=== PATIENT | female | born 1930 | race Asian ===

== ENCOUNTER 2016-10-31 10:46 | Inpatient (IN) | payer MEDICARE, OTHER ==
[~2016-10-31] VITALS: Ht 152.4 cm; Wt 59.3 kg
--- NOTE | 2016-10-31 11:15 | ERA ---
ER Documentation Chief Complaint Date/Time DATE: 10/31/16 TIME: 11:14 Chief Complaint CLOTTED RIGHT AV GRAFT.SENT BY PMD.LAST DIALYSIS Saturday The patient is a 86-year-old female, presenting with a clotted AV shunt on the right upper extremity. Her last dialysis was 2 days ago. She denies fever, chills, neck pain, chest pain, dyspnea, abdominal pain, vomiting. She does not smoke nor drink Past medical history: Chronic kidney disease, dialysis on Saturday and Saturday, chronic bilateral lower extremity edema more on the right than the left , CAD Past surgical history: Right upper extremity AV graft for 8 years, pacemaker ROS All systems reviewed and are negative except as per history of present illness. Medications Home Meds Reported Medications Folic Acid* (Folic Acid*) 1 Mg Tablet, 1 MG PO DAILY, TAB 10/31/16 Multivit/Ca Carb/B Cmplx/Fa* (Sissy-Poonam*) 1 Tab Tab, 1 TAB PO DAILY, TAB 10/31/16 Levothyroxine Sodium* (Levoxyl*) 25 Mcg Tablet, 25 MCG PO BEFORE BREAKFAST, #30 TAB 10/31/16 Carvedilol* (Carvedilol*) 25 Mg Tablet, 25 MG PO BID, #60 TAB 10/31/16 Diltiazem Hcl* (Diltiazem XT) 120 Mg Capsule.sa, 120 MG PO DAILY, #30 CAP 10/31/16 Clopidogrel Bisulfate (Clopidogrel) 75 Mg Tablet, 75 MG PO DAILY, #30 TAB 10/31/16 Allergies Allergies: Coded Allergies: rifampin (Unverified Allergy, Unknown, 10/31/16) PMhx/Soc History of Surgery: Yes (fistulas) Hx Psychiatric Problems: No Hx Miscellaneous Medical Probl: Yes Hx Alcohol Use: No Hx Substance Use: No Hx Tobacco Use: No Smoking Status: Never smoker Physical Exam Vitals Vital Signs Date Time Temp Pulse Resp B/P Pulse Ox O2 Delivery O2 Flow Rate FiO2 10/31/16 12:56 94 13 127/85 96 Room Air 10/31/16 11:09 86 16 118/72 98 Room Air 10/31/16 10:53 97.1 84 18 128/65 98 Physical Exam Const: No acute distress. Head: Atraumatic. Eyes: Normal Conjunctiva. ENT: Normal External Ears, Nose and Mouth. Neck: Full range of motion. No meningismus. Resp: Clear to auscultation bilaterally. Cardio: Regular rate and rhythm, no murmurs. Abd: Soft, non distended, normal bowel sounds, non tender. Skin: No petechiae or rashes. Back: No midline or flank tenderness. Ext: No cyanosis, chronic bilateral lower extremity edema, worse on the right than the left, no calf tenderness. Right upper extremity AV fistula is without thrill or bruit Neur: Awake and alert. No focal deficit Psych: Normal Mood and Affect. Result Diagram: 10/31/16 1150 10/31/16 1150 Results 24 hrs Laboratory Tests Test 10/31/16 11:50 White Blood Count 2.710^3/ul Red Blood Count 2.9010^6/ul Hemoglobin 9.7g/dl Hematocrit 30.9% Mean Corpuscular Volume 106.6fl Mean Corpuscular Hemoglobin 33.4pg Mean Corpuscular Hemoglobin Concent 31.4g/dl Red Cell Distribution Width 15.8% Platelet Count 9910^3/UL Mean Platelet Volume 11.1fl Neutrophils % 57.7% Lymphocytes % 24.9% Monocytes % 12.5% Eosinophils % 3.4% Basophils % 1.1% Nucleated Red Blood Cells % 0.0/100WBC Neutrophils # 1.510^3/ul Lymphocytes # 0.710^3/ul Monocytes # 0.310^3/ul Eosinophils # 0.110^3/ul Basophils # 0.010^3/ul Nucleated Red Blood Cells # 0.010^3/ul Prothrombin Time 13.9Sec Prothrombin Time Ratio 1.1 INR International Normalized Ratio 1.07 Activated Partial Thromboplast Time 38.2Sec Sodium Level 138mmol/L Potassium Level 4.9mmol/L Chloride Level 109mmol/L Carbon Dioxide Level 21mmol/L Anion Gap 13 Blood Urea Nitrogen 48mg/dl Creatinine 5.49mg/dl Glucose Level 83mg/dl Calcium Level 8.8mg/dl Phosphorus Level 6.0mg/dl Magnesium Level 2.5mg/dl [facility] [id number] Radiology Main Line: [phone] DIAGNOSTIC IMAGING REPORT Patient: JORGE ALBERTO FRAUSTO : 1930 Age: 86 Sex: F MR #: [id number] DOS: 10/31/16 1111 Ordering MD: BOBBY WILLS MD Location: E/R Room/Bed: PROCEDURE: Chest x-ray CLINICAL INDICATION: Headache TECHNIQUE: Chest single view COMPARISON: None FINDINGS: There is a right IJ venous shunt in place. Right chest multi lead pacemaker is also identified. There is moderate cardiomegaly and atherosclerotic aortic calcification. Mild interstitial CHF is identified. No large pleural fluid is noted IMPRESSION: 1. Cardiomegaly with mild interstitial CHF. 2. Atherosclerotic aortic calcification. 3. Right chest and a shunt in place. 4. Pacemaker. 5. Right arm vascular stent RPTAT: HH .Omero Woods MD, MD Date Time Electronically viewed and signed by .Omero Woods MD, MD on 10/31/2016 12:39 .W/ CC: BOBBY WILLS MD [place] [id number] Radiology Main Line: [phone] DIAGNOSTIC IMAGING REPORT Patient: JORGE ALBERTO FRAUSTO : 1930 Age: 86 Sex: F MR #: [id number] DOS: 10/31/16 1136 Ordering MD: BOBBY WILLS MD Location: E/R Room/Bed: PROCEDURE: US DVT. CLINICAL INDICATION: Bilateral lower extremity edema. Evaluate for deep venous thrombosis.. TECHNIQUE: Multiple longitudinal and transverse images of the bilateral lower extremity veins were obtained with cantor scale and color Doppler imaging. 2D grayscale measurements with compression, color Doppler flow, and augmentation was performed. The calf veins were interrogated as well. COMPARISON: No prior studies are available for comparison. FINDINGS: The bilateral common femoral, superficial femoral and popliteal veins are normally compressible throughout. Color flow demonstrates normal filling of the vessel. Normal waveforms are visualized and there is normal response to augmentation. IMPRESSION: 1. No evidence of a deep vein thrombosis involving either lower extremity. RPTAT: A[facility] Hola Hobbs, Physician Date Time Electronically viewed and signed by Hola Hobbs Physician on 10/31/2016 12: 50 JH/ CC: BOBBY WILLS MD MEDICAL MAKING DECISION: The patient is a 86-year-old female, presenting with clotted AV graft of right upper extremity, acute hyperphosphatemia, pancytopenia. She will be admitted for revision of the graft by vascular surgeon Consultation: I discussed the patient with the vascular surgeon Dr. Ramirez as requested by the admitting physician Dr. Sanchez. He was made aware of the lab , the treatment, the patient condition. He accepted the consult at 1:20pm Departure Diagnosis: Primary Impression: Complication of vascular access for dialysis Additional Impressions: Hyperphosphatemia Pancytopenia Condition: Stable Comments I discussed the findings with the patient. I discussed the patient with her physician Dr. Sanchez who was made aware of the lab, the treatment, the patient condition. The patient is admitted to [facility] at 11:35 pm BOBBY WILLS MD Oct 31, 2016 11:15
[2016-10-31 12:08] LABS: ADD SCAN DIFF NO
[2016-10-31] MEDS ORDERED: CLOP75TA27 PO (12:08)
[2016-10-31] MEDS ORDERED: DILT120C79 PO (12:09)
[2016-10-31] MEDS ORDERED: CARV25TA79 PO (12:09)
[2016-10-31] MEDS ORDERED: LEVO25TA50 PO (12:10)
[2016-10-31] MEDS ORDERED: FOLI-49 PO (12:10)
[2016-10-31] MEDS ORDERED: NEPH PO (12:10)
[2016-10-31 12:11] LABS: ABNORMAL IP MESSAGE 1; BASOPHILS % 1.1 % (0.0-2.0); EOSINOPHILS # 0.1 10^3/ul (0.0-0.5); EOSINOPHILS % 3.4 % (0.0-7.0); HEMATOCRIT 30.9 % (37.0-47.0); HEMOGLOBIN 9.7 g/dl (12.0-16.0); LYMPHOCYTES # 0.7 10^3/ul (0.8-2.9); LYMPHOCYTES % 24.9 % (15.0-51.0); MEAN CORPUSCULAR HEMOGLOBIN 33.4 pg (29.0-33.0); MEAN CORPUSCULAR HGB CONC 31.4 g/dl (32.0-37.0); MEAN CORPUSCULAR VOLUME 106.6 fl (82.0-101.0); MEAN PLATELET VOLUME 11.1 fl (7.4-10.4); MONOCYTE # 0.3 10^3/ul (0.3-0.9); MONOCYTES % 12.5 % (0.0-11.0); NEUTROPHIL # 1.5 10^3/ul (1.6-7.5); NEUTROPHILS % 57.7 % (39.0-77.0); PLATELET COUNT 99 10^3/UL (140-415); RED CELL DISTRIBUTION WIDTH 15.8 % (11.5-14.5); WHITE BLOOD COUNT 2.7 10^3/ul (4.8-10.8)
[2016-10-31 12:20] LABS: INR 1.07; PROTIME 13.9 Sec (12.2-14.2); PT RATIO 1.1
[2016-10-31 12:21] LABS: PARTIAL THROMBOPLASTIN TIME 38.2 Sec (25.0-35.0)
[2016-10-31 12:28] LABS: CALCIUM 8.8 mg/dl (8.4-10.2); CREATININE 5.49 mg/dl (0.44-1.00); MAGNESIUM 2.5 mg/dl (1.7-2.5); POTASSIUM 4.9 mmol/L (3.5-5.1)
--- NOTE | 2016-10-31 12:39 | RADRPT ---
PROCEDURE: Chest x-ray CLINICAL INDICATION: Headache TECHNIQUE: Chest single view COMPARISON: None FINDINGS: There is a right IJ venous shunt in place. Right chest multi lead pacemaker is also identified. Th ere is moderate cardiomegaly and atherosclerotic aortic calcification. Mild interstitial CHF is ubaldo ntified. No large pleural fluid is noted IMPRESSION: 1. Cardiomegaly with mild interstitial CHF. 2. Atherosclerotic aortic calcification. 3. Right chest and a shunt in place. 4. Pacemaker. 5. Right arm vascular stent RPTAT: HH .Omero Woods MD, MD Date Time Electronically viewed and signed by .Omero Woods MD, on 10/31/2016 12:39 .W/
--- NOTE | 2016-10-31 12:51 | RADRPT ---
PROCEDURE: US DVT. CLINICAL INDICATION: Bilateral lower extremity edema. Evaluate for deep venous thrombosis.. TECHNIQUE: Multiple longitudinal and transverse images of the bilateral lower extremity veins were obtained with cantor scale and color Doppler imaging. 2D grayscale measurements with compression, co freddie Doppler flow, and augmentation was performed. The calf veins were interrogated as well. COMPARISON: No prior studies are available for comparison. FINDINGS: The bilateral common femoral, superficial femoral and popliteal veins are normally compressible thro ughout. Color flow demonstrates normal filling of the vessel. Normal waveforms are visualized and there is normal response to augmentation. IMPRESSION: 1. No evidence of a deep vein thrombosis involving either lower extremity. RPTAT: AACC Physician Sharonda Date Time Electronically viewed and signed by Physician Sharonda on 10/31/2016 12:50 /
[2016-10-31 18:54] VITALS: TEMP 97.1
--- NOTE | 2016-10-31 19:27 | CONS ---
DATE OF ADMISSION: 10/31/2016 DATE OF CONSULTATION: REASON FOR CONSULTATION: Clotted right upper extremity AV graft. HISTORY OF PRESENT ILLNESS: This is a patient known to me, 86-year-old female, with history of end- stage renal disease currently on dialysis per right upper extremity AV graft. The patient was dialy zed yesterday and was found to have a clotted graft today. PAST MEDICAL HISTORY: Hypertension, hyperlipidemia, end-stage renal disease. PAST SURGICAL HISTORY: Multiple AV grafts. ALLERGIES: NONE. MEDICATIONS: List reviewed, which includes: 1. Multivitamin. 2. Levothyroxine. 3. Carvedilol. 4. Diltiazem. 5. Plavix. ALLERGIES: RIFAMPIN. SOCIAL HISTORY: No smoking, drinking, or drug use. PHYSICAL EXAMINATION: GENERAL: The patient is awake and alert, responds appropriately. VITAL SIGNS: Blood pressure is 135/81, pulse is 81, respirations 18. CARDIOVASCULAR: Normal S1, S2. No murmurs, gallops, or rubs. LUNGS: Clear. ABDOMEN: Soft. EXTREMITIES: Warm. Right upper extremity AV graft with multiple scars. No thrill or bruit. LABORATORY VALUES: Hemoglobin 9.9, white count 2.7, platelet count 99, normal coagulation factors, and a potassium of 4.9. IMPRESSION: 1. Renal failure. 2. Clotted right upper extremity arteriovenous graft. RECOMMENDATIONS: We will proceed with thrombectomy, right upper extremity AV graft. Discussed with the family. All questions answered. Dictated By: CAROLYN LIZARRAGA/ALEJANDRO Conf#: [id number] DID#: [id number]
[2016-10-31 19:49] VITALS: Ht 152.4 cm; Wt 59.3 kg
[2016-10-31 20:35] VITALS: BP 132/92; RESP 19
--- NOTE | 2016-10-31 22:39 | QN ---
Documentation Comment [id number] SHEEBA NEGRON MD Oct 31, 2016 22:39
[2016-10-31] MEDS ORDERED: BISACODYL (EC) 5 MG TAB PO PRN (23:00)
[2016-10-31] MEDS ORDERED: HYDROCODONE/APAP (5/325) TAB PO PRN (23:00)
[2016-10-31] MEDS ORDERED: ACETAMINOPHEN 325 MG TAB PO PRN (23:00)
[2016-10-31] MEDS ORDERED: NACL 0.9% 3 ML SYG IV SCH (23:00)
[2016-10-31] MEDS ORDERED: DOCUSATE SODIUM 100 MG CAP PO PRN (23:00)
[2016-10-31] MEDS ORDERED: ONDANSETRON 4 MG INJ IV PRN (23:00)
[2016-10-31] MEDS ORDERED: ACETAMINOPHEN 650 MG SUPP PR PRN (23:00)
--- NOTE | 2016-10-31 23:48 | HP ---
DATE OF ADMISSION: 10/31/2016 HISTORY OF PRESENT ILLNESS: Dayanara Valencia is an 86-year-old female who presented with clotted AV graft on the right. Patient is going to be seen by Dr. Ramirez in consultation. The patient is denying any chest pain, palpitations at this point. PAST MEDICAL HISTORY: Positive for ESRD, hypertension, hypothyroidism. Patient has history of multiple AV thrombectomy. ALLERGY HISTORY: RIFAMPIN. SOCIAL HISTORY: Negative. FAMILY HISTORY: Negative. MEDICATIONS: 1. Coreg. 2. Plavix. 3. Cardizem. 4. Folic acid. 5. Levothyroxine. 6. Multivitamin. REVIEW OF SYSTEMS: HEENT: Unremarkable. RESPIRATORY: Unremarkable. CARDIOVASCULAR: No chest pain, palpitation. ABDOMEN: Unremarkable. EXTREMITIES: Swelling of the right lower extremity more than the left. CENTRAL NERVOUS SYSTEM: Unremarkable. PHYSICAL EXAMINATION: GENERAL: The patient is awake and alert. VITAL SIGNS: Pulse 87, blood pressure 135/91. HEAD: Head is atraumatic, normocephalic. Pupils equal, reactive to light. NECK: Supple. No JVD. LUNGS: Clear. CARDIOVASCULAR: S1, S2 are normal. ABDOMEN: Soft, nontender. Bowel sounds present. No palpable mass. EXTREMITIES: No cyanosis, clubbing, or edema of the right lower extremity more than the left, is chronic as per family. The patient has clotted graft in the right upper extremity. The patient is awake, alert, moving both upper and lower extremities. LABORATORY DATA: WBC 2.7, hematocrit 30.9, platelet count of , potassium 4.9. Chest x-ray showed cardiomegaly with mild interstitial CHF, atherosclerotic aortic calcification, right chest had shunt in place, pacemaker . The patient has no evidence of DVT of the lower extremity. IMPRESSION: 1. Clotted AV graft. 2. End-stage renal disease. 3. The patient has multiple avg thrombectomy in the past. PLAN: For this patient the patient will have declotting of the AV graft by Dr. Ramirez and the patient will be dialyzed home medications will be reviewed Dictated By: SHEEBA NEGRON MD BS/NTS Conf#: [id number] DID#: [id number] [facility]
[2016-11-01 05:07] LABS: ADD SCAN DIFF NO
[2016-11-01] MEDS: LEVOTHYROXINE 25 MCG TAB PO SCH (05:09)
[2016-11-01 05:13] LABS: ABNORMAL IP MESSAGE 1; HEMATOCRIT 27.1 % (37.0-47.0); HEMOGLOBIN 8.7 g/dl (12.0-16.0); MEAN CORPUSCULAR HGB CONC 32.1 g/dl (32.0-37.0); MEAN CORPUSCULAR VOLUME 105.9 fl (82.0-101.0); MEAN PLATELET VOLUME 11.1 fl (7.4-10.4); PLATELET COUNT 86 10^3/UL (140-415); RED BLOOD COUNT 2.56 10^6/ul (4.20-5.40); RED CELL DISTRIBUTION WIDTH 15.5 % (11.5-14.5)
[2016-11-01 05:21] LABS: POTASSIUM 4.8 mmol/L (3.5-5.1)
[2016-11-01 05:24] LABS: CALCIUM 8.3 mg/dl (8.4-10.2); CREATININE 6.43 mg/dl (0.44-1.00)
[2016-11-01] MEDS: DILTIAZEM (CD) 120 MG CAP PO SCH (08:20)
[2016-11-01] MEDS: MULTIVIT/CA CARB/B CMPLX/FA TAB PO SCH (08:21)
[2016-11-01] MEDS: FOLIC ACID 1 MG TAB PO SCH (08:21)
[2016-11-01] MEDS: FAMOTIDINE 20 MG TAB PO SCH (08:21)
[2016-11-01 09:09] VITALS: BP 101/52; RESP 16
--- NOTE | 2016-11-01 10:26 | PN ---
Date/Time of Note Date/Time of Note DATE: 11/01/16 TIME: 10:21 Assessment/Plan Lines/Catheters IV Catheter Type (from Nrsg): Saline Lock Assessment/Plan Chief Complaint/Hosp Course IMPRESSION: 1. Renal failure. 2. Clotted right upper extremity arteriovenous graft. RECOMMENDATIONS: We will proceed with thrombectomy, right upper extremity AV graft. Discussed with the family. All questions answered. OR time is not available today. Plan for surgery when OR time is available Problems: Subjective 24 Hr Interval Summary Constitutional: improved Pain Control: mild Exam/Review of Systems Vital Signs Vitals Vital Signs Date Time Temp Pulse Resp B/P Pulse Ox O2 Delivery O2 Flow Rate FiO2 11/01/16 09:09 97.8 64 16 101/52 94 10/31/16 18:54 Room Air Intake and Output 10/31/16 10/31/16 11/01/16 15:00 23:00 07:00 Intake Total 250 ml Balance 250 ml Exam ENMT: mucosa pink and moist, nl external ears & nose, nl lips & teeth, nl nasal mucosa & septum Neck: non-tender, supple Respiratory: clear to auscultation, normal air movement Cardiovascular: nl pulses, regular rate and rhythm Gastrointestinal: nl liver, spleen, non-tender, soft Results Result Diagram: 11/01/16 0425 11/01/16 0425 CAROLYN LIMA MD Nov 01, 2016 10:25
[2016-11-01 12:09] LABS: EOSINOPHILS # 0.1 10^3/ul (0.0-0.5); LYMPHOCYTES # 0.5 10^3/ul (0.8-2.9); MONOCYTE # 0.2 10^3/ul (0.3-0.9); NEUTROPHIL # 1.1 10^3/ul (1.6-7.5)
--- NOTE | 2016-11-01 17:32 | RADRPT ---
Vent Rate: 82 bpm RR Interval: 0 msec SD Interval: 0 msec QRS Duration: 76 msec QT Interval: 428 msec QTC Interval: 500 msec P-R-T [place]: 0 - -76 - -26 degrees Demand pacemaker, interpretation is based on intrinsic rhythm Atrial fibrillation with premature ventricular or aberrantly conducted complexes Left axis deviation Low voltage QRS Inferior infarct , age undetermined Cannot rule out Anterior infarct , age undetermined Abnormal ECG Electronically Signed By: Mathieu Mendez [id number]
--- NOTE | 2016-11-01 19:11 | PN ---
Date/Time of Note Date/Time of Note DATE: 11/01/16 TIME: 19:10 Assessment/Plan VTE Prophylaxis VTE Prophylaxis Intervention: other Lines/Catheters [facility] Saline Lock Assessment/Plan Chief Complaint/Hosp Course IMPRESSION: 1. Clotted AV graft. 2. End-stage renal disease. 3. The patient has multiple avg thrombectomy in the past. plan declotting soon Problems: Subjective 24 Hr Interval Summary Subjective hx not possible: other (waiting for avf declotting) Exam/Review of Systems Vital Signs Vitals Vital Signs Date Time Temp Pulse Resp B/P Pulse Ox O2 Delivery O2 Flow Rate FiO2 11/01/16 09:09 97.8 64 16 101/52 94 10/31/16 18:54 Room Air Intake and Output 10/31/16 10/31/16 11/01/16 15:00 23:00 07:00 Intake Total 250 ml Balance 250 ml Exam Respiratory: clear to auscultation Cardiovascular: regular rate and rhythm Gastrointestinal: soft Musculoskeletal: nl extremities to inspection Results Result Diagram: 11/01/16 0425 11/01/16 0425 Results 24 hrs Laboratory Tests Test 11/01/16 04:25 White Blood Count 2.0 #L Red Blood Count 2.56 L Hemoglobin 8.7 L Hematocrit 27.1 L Mean Corpuscular Volume 105.9 H Mean Corpuscular Hemoglobin 34.0 H Mean Corpuscular Hemoglobin Concent 32.1 Red Cell Distribution Width 15.5 H Platelet Count 86 L Mean Platelet Volume 11.1 H Neutrophils % 54.0 Band Neutrophils % 10.0 H Lymphocytes % 23.0 Monocytes % 10.0 Eosinophils % 3.0 Nucleated Red Blood Cells % 1.0 H Neutrophils # 1.1 L Lymphocytes # 0.5 L Monocytes # 0.2 L Eosinophils # 0.1 Sodium Level 141 Potassium Level 4.8 Chloride Level 108 Carbon Dioxide Level 21 Anion Gap 17 H Blood Urea Nitrogen 58 H Creatinine 6.43 H Glucose Level 85 Calcium Level 8.3 L Medications Medications Current Medications Carvedilol (Coreg) 25 mg BID PO Last administered on 10/31/16t 21:21; Admin Dose 25 MG; Start 10/31/16 at 21:00 Diltiazem HCl (Cardizem Cd) 120 mg DAILY PO ; Start 11/01/16 at 09:00 Folic Acid (Folic Acid) 1 mg DAILY PO ; Start 11/01/16 at 09:00 Multivit/Ca Carb/ B Cmplx/FA/Prenat (Sissy-Poonam) 1 tab DAILY PO ; Start 11/01/16 at 09:00 Ondansetron HCl (Zofran Inj) 4 mg Q6H PRN IV NAUSEA AND/OR VOMITING; Start at 23:00 Acetaminophen (Tylenol Tab) 650 mg Q6H PRN PO PAIN LEVEL 1-3 OR FEVER; Start at 23:00 Acetaminophen (Tylenol Supp) 650 mg Q6H PRN [place] PAIN LEVEL 1-3 OR FEVER; Start 10/31/16 at 23:00 Acetaminophen/ Hydrocodone Bitart ([place] (5/325)) 1 tab Q6H PRN PO MODERATE PAIN LEVEL 4-6; Start 10/31/16 at 23:00 Docusate Sodium (Colace) 100 mg Q12H PRN PO CONSTIPATION; Start 10/31/16 at 23: 00 Bisacodyl (Dulcolax) 5 mg DAILY PRN PO CONSTIPATION; Start 10/31/16 at 23:00 Famotidine (Pepcid) 20 mg DAILY PO ; Start 11/01/16 at 09:00 SHEEBA NEGRON MD Nov 01, 2016 19:11
[2016-11-01 19:55] VITALS: BP 75/45; RESP 17
[2016-11-01 21:25] VITALS: BP 80/53; RESP 22
[2016-11-01 23:00] VITALS: PULSE 75
[2016-11-01 23:17] VITALS: BP 75/38; RESP 17
[2016-11-02] VITALS (27 sets, daily range): BP systolic 81–113; BP diastolic 46–73; PULSE 56–93; RESP 12–19
--- NOTE | 2016-11-02 00:46 | RADRPT ---
PROCEDURE: XR Chest. CLINICAL INDICATION: Chest pain. Shortness of breath TECHNIQUE: Portable AP supine view of the chest was obtained. COMPARISON: 10/31/2016 FINDINGS: The cardiomediastinal silhouette is enlarged, a dual chamber right subclavian approach cardiac pacem zonia is again noted. A right internal jugular approach central venous access catheter is again seen the distal tip at the cavoatrial junction. No acute lobar infiltrate is identified. Pulmonary vas cular congestion and chronic congestive heart failure pattern is again identified, unchanged from th e prior exam. There is no evidence of pneumothorax or obvious pleural effusion. Demineralization i s again noted with severe degenerative change of the left shoulder. There is no evidence of acute o sseous abnormality. Multiple monitoring wires overlie the chest limiting fine evaluation RPTAT:HJJR IMPRESSION: Stable chronic congestive heart failure pattern in this patient with cardiac silhouette enlargement and dual chamber cardiac pacemaker, the appearance of the chest unchanged compared to 10/31/2016. Physician Garima Date Time Electronically viewed and signed by Physician Garima on 11/02/2016 00:46 /
[2016-11-02] MEDS ORDERED: SOD CHLORIDE 0.9% 200 ML IV ONE (03:00)
[2016-11-02 04:19] LABS: CALCIUM 8.4 mg/dl (8.4-10.2); CREATININE 7.32 mg/dl (0.44-1.00); POTASSIUM 5.3 mmol/L (3.5-5.1)
[2016-11-02] MEDS: LEVOTHYROXINE 25 MCG TAB PO SCH (07:00)
[2016-11-02] MEDS: FOLIC ACID 1 MG TAB PO SCH (08:30)
[2016-11-02] MEDS: DILTIAZEM (CD) 120 MG CAP PO SCH (08:30)
[2016-11-02] MEDS: FAMOTIDINE 20 MG TAB PO SCH (08:30)
[2016-11-02] MEDS: MULTIVIT/CA CARB/B CMPLX/FA TAB PO SCH (08:30)
[2016-11-02] MEDS ORDERED: NA POLYST SULFON 15 GM/60 ML BTL PR ONE (09:00)
--- NOTE | 2016-11-02 12:35 | RADRPT ---
Vent Rate: 72 bpm RR Interval: 0 msec MA Interval: 0 msec QRS Duration: 80 msec QT Interval: 408 msec QTC Interval: 446 msec P-R-T [place]: 0 - 115 - 101 degrees Atrial fibrillation Right axis deviation Low voltage QRS Nonspecific T wave abnormality , probably digitalis effect Abnormal ECG Electronically Signed By: Mathieu Mendez [id number]
[2016-11-02] MEDS ORDERED: LIDOCAINE 1% (MPF) 30 ML INJ ONE (13:19)
[2016-11-02] MEDS ORDERED: BUPIVACAINE 0.5% (SDV) 30 ML INJ ONE (13:19)
[2016-11-02] MEDS ORDERED: IOHEXOL 300MG/ML 30 ML BTL ONE (13:20)
[2016-11-02] MEDS ORDERED: GELATIN SIZE 100 SPONGE ONE (13:20)
[2016-11-02] MEDS ORDERED: HEPARIN 1000 UNITS/ML 10 ML INJ ONE (13:20)
[2016-11-02] MEDS ORDERED: THROMBIN 5000 UNIT VIAL ONE (13:20)
--- NOTE | 2016-11-02 13:26 | PN ---
Date/Time of Note Date/Time of Note DATE: 11/02/16 TIME: 13:22 Assessment/Plan VTE Prophylaxis VTE Prophylaxis Intervention: SCD's Lines/Catheters IV [facility] Saline Lock Urinary Cath still in place: No Assessment/Plan Chief Complaint/Hosp Course 1. Clotted AV graft. 2. End-stage renal disease. 3. The patient has multiple avg thrombectomy in the past. Problems: Assessment/Plan 1. dr Ramirez will declot it today Subjective 24 Hr Interval Summary Constitutional: improved, no complaints Eyes: no complaints ENT: no complaints Respiratory: no complaints Cardiovascular: no complaints Gastrointestinal: no complaints Genitourinary: no complaints Musculoskeletal: back pain Skin: no complaints Exam/Review of Systems Vital Signs Vitals Vital Signs Date Time Temp Pulse Resp B/P Pulse Ox O2 Delivery O2 Flow Rate FiO2 11/02/16 12:19 113/65 11/02/16 12:04 77 11/02/16 11:32 97.1 18 99 11/01/16 23:00 Nasal Cannula 2.0 Intake and Output 11/01/16 11/01/16 11/02/16 15:00 23:00 07:00 Intake Total 480 ml 200 ml Balance 480 ml 200 ml Exam Constitutional: alert Psych: no complaints Head: normocephalic Eyes: nl conjunctiva ENMT: nl external ears & nose Neck: supple Respiratory: clear to auscultation Cardiovascular: regular rate and rhythm Genitourinary - Female: nl external genitalia Extremities: other (right AV shunt no bruit) Neurological: TREATING PLANT PUMPER II-XII intact Results Result Diagram: 11/01/16 0425 11/02/16 0345 Results 24 hrs Laboratory Tests Test 11/01/16 21:48 11/01/16 22:10 11/02/16 03:45 11/02/16 09:40 Bedside Glucose 117 Troponin I 0.028 0.027 0.031 Sodium Level 140 Potassium Level 5.3 H Chloride Level 110 Carbon Dioxide Level 22 Anion Gap 13 Blood Urea Nitrogen 65 H Creatinine 7.32 H Glucose Level 106 Calcium Level 8.4 Medications Medications Current Medications Carvedilol (Coreg) 25 mg BID PO Last administered on 10/31/16t 21:21; Admin Dose 25 MG; Start 10/31/16 at 21:00 Diltiazem HCl (Cardizem Cd) 120 mg DAILY PO ; Start 11/01/16 at 09:00 Folic Acid (Folic Acid) 1 mg DAILY PO ; Start 11/01/16 at 09:00 Multivit/Ca Carb/ B Cmplx/FA/Prenat (Sissy-Poonam) 1 tab DAILY PO ; Start 11/01/16 at 09:00 Ondansetron HCl (Zofran Inj) 4 mg Q6H PRN IV NAUSEA AND/OR VOMITING; Start at 23:00 Acetaminophen (Tylenol Tab) 650 mg Q6H PRN PO PAIN LEVEL 1-3 OR FEVER; Start at 23:00 Acetaminophen (Tylenol Supp) 650 mg Q6H PRN [place] PAIN LEVEL 1-3 OR FEVER; Start 10/31/16 at 23:00 Acetaminophen/ Hydrocodone Bitart ([place] (5/325)) 1 tab Q6H PRN PO MODERATE PAIN LEVEL 4-6; Start 10/31/16 at 23:00 Docusate Sodium (Colace) 100 mg Q12H PRN PO CONSTIPATION; Start 10/31/16 at 23: 00 Bisacodyl (Dulcolax) 5 mg DAILY PRN PO CONSTIPATION; Start 10/31/16 at 23:00 Famotidine (Pepcid) 20 mg DAILY PO ; Start 11/01/16 at 09:00 DOLLY YEPEZ Nov 02, 2016 13:26
[2016-11-02] MEDS ORDERED: BUPIVACAINE 0.5% 30 ML VIAL INJ ONE (13:50)
[2016-11-02] MEDS ORDERED: LIDOCAINE 1% (MPF) 30 ML INJ INJ ONE (13:50)
[2016-11-02] MEDS ORDERED: HEPARIN 1000 UNITS/ML 10 ML INJ IRR ONE (13:50)
--- NOTE | 2016-11-02 14:54 | HPN ---
Date/Time of Note Date/Time of Note DATE: 11/02/16 TIME: 14:54 Interval H&P Admission Note Pt. seen H&P reviewed: No system changes CAROLYN LIMA MD Nov 02, 2016 14:54
[2016-11-02] MEDS ORDERED: PROPOFOL 20 ML ONE (15:05)
[2016-11-02] MEDS ORDERED: SUCCINYLCHOLINE CHLORIDE 100 MG/5 ML SYG IV ONE (15:06)
[2016-11-02] MEDS ORDERED: FENTAnyl 50 MCG/ML VIAL ONE (15:06)
[2016-11-02] MEDS ORDERED: MIDAZOLAM 1 MG/ML 2 ML INJ ONE (15:06)
[2016-11-02] MEDS ORDERED: ROCURONIUM 50 MG INJ ONE (15:06)
[2016-11-02] MEDS ORDERED: ETOMIDATE 20 MG INJ ONE (15:06)
[2016-11-02] MEDS ORDERED: IOHEXOL 300MG/ML 30 ML BTL INJ ONE (15:10)
--- NOTE | 2016-11-02 16:12 | OPR ---
Date/Time of Note Date/Time of Note DATE: 11/02/16 TIME: 16:08 Operative Report Procedure Date: Nov 02, 2016 Preoperative Diagnosis Clotted RUE AVG Postoperative Diagnosis same Operation Performed Thrombectomy RUE AVG Surgeon: CAROLYN LIMA MD Anesthesia: MAC Estimated Blood Loss: minimal Complications: None Pt Condition Post Procedure: stable Disposition: PACU Indications ESRD Operative\Procedure Findings Dictated CAROLYN LIMA MD Nov 02, 2016 16:12
[2016-11-02] MEDS ORDERED: EPHEDrine SULFATE 50 MG/5 ML SYG ONE (16:34)
[2016-11-02] MEDS ORDERED: EPHEDrine SULFATE 50 MG/5 ML SYG IV PRN (17:00)
[2016-11-03] VITALS (8 sets, daily range): BP systolic 101–104; BP diastolic 51–81; PULSE 69–98; RESP 17–20
[2016-11-03] MEDS: LEVOTHYROXINE 25 MCG TAB PO SCH (06:04)
--- NOTE | 2016-11-03 06:57 | OPR ---
DATE OF OPERATION: PREOPERATIVE DIAGNOSIS: Clotted left upper extremity arteriovenous graft. POSTOPERATIVE DIAGNOSIS: Clotted left upper extremity arteriovenous graft. OPERATION PERFORMED: 1. Thrombectomy and revision, right upper extremity AV graft. 2. Right upper extremity venogram. 3. Central venogram. 4. Interpretation and supervision of the venogram. 5. Right upper extremity arterial anastomosis arteriogram/ brachial arteriogram. 6. Fluoroscopy. SURGEON: Carolyn Ramirez MD ANESTHESIA: Local with IV sedation. CONSENT: Risks, benefits, complications, alternative therapies explained to the patient and [facility], consent obtained. OPERATIVE TECHNIQUE: The patient was placed in supine position, prepped and draped in usual sterile fashion. Time-out was called, antibiotic was given and I started. I made a 2 cm incision over the right arm AV graft which was in the arm laterally. Incision was andres en down to the subcutaneous tissue which was then opened using electrocautery. The graft was identi fied. There appeared to be a large laceration in the graft. It was then opened through the lacerat ion ____. Thrombectomy of the arterial and venous limb of the graft was performed using a 4-[place] Edward catheter. Arteriogram was done which showed no evidence of any arterial anastomosis, comple tely patent arterial anastomosis. Venogram was done which showed a ____catheter draining into the s uperior vena cava ____without any clot. The graft was then revised in end-to-end anastomosis using 6-0 Prolene continuous suture technique. The wound was irrigated and closed in 2 layers of 2-0 Vicr yl suture for the deep and 3-0 Vicryl suture for running subcuticular skin closure. The patient had a strong thrill and a bruit over the newly thrombectomized graft and tolerated the procedure well. Dictated By: CAROLYN LIZARRAGA/ALEJANDRO Conf#: [id number] DID#: [id number]
[2016-11-03 07:07] LABS: ADD SCAN DIFF NO
[2016-11-03 07:21] LABS: ABNORMAL IP MESSAGE 1; BASOPHILS % 1.3 % (0.0-2.0); EOSINOPHILS # 0.1 10^3/ul (0.0-0.5); HEMATOCRIT 28.8 % (37.0-47.0); HEMOGLOBIN 9.3 g/dl (12.0-16.0); LYMPHOCYTES # 0.4 10^3/ul (0.8-2.9); LYMPHOCYTES % 18.6 % (15.0-51.0); MEAN CORPUSCULAR HEMOGLOBIN 33.8 pg (29.0-33.0); MEAN CORPUSCULAR HGB CONC 32.3 g/dl (32.0-37.0); MEAN CORPUSCULAR VOLUME 104.7 fl (82.0-101.0); MEAN PLATELET VOLUME 11.3 fl (7.4-10.4); MONOCYTE # 0.3 10^3/ul (0.3-0.9); MONOCYTES % 11.9 % (0.0-11.0); NEUTROPHIL # 1.5 10^3/ul (1.6-7.5); NEUTROPHILS % 64.2 % (39.0-77.0); PLATELET COUNT 95 10^3/UL (140-415); RED BLOOD COUNT 2.75 10^6/ul (4.20-5.40); WHITE BLOOD COUNT 2.3 10^3/ul (4.8-10.8)
[2016-11-03 07:29] LABS: CALCIUM 8.6 mg/dl (8.4-10.2); CREATININE 5.05 mg/dl (0.44-1.00); MAGNESIUM 2.3 mg/dl (1.7-2.5); POTASSIUM 3.5 mmol/L (3.5-5.1)
[2016-11-03] MEDS: FAMOTIDINE 20 MG TAB PO SCH (08:50)
[2016-11-03] MEDS: MULTIVIT/CA CARB/B CMPLX/FA TAB PO SCH (08:50)
[2016-11-03] MEDS: FOLIC ACID 1 MG TAB PO SCH (08:51)
[2016-11-03] MEDS: DILTIAZEM (CD) 120 MG CAP PO SCH (08:51)
--- NOTE | 2016-11-03 10:48 | RADRPT ---
PROCEDURE: Intraoperative imaging of the right humerus with fluoroscopy. CLINICAL INDICATION: Right arm pain. Right upper extremity dialysis graft malfunction. Intraoper ative. TECHNIQUE: 7 images of the right humerus region were obtained in the operating room with an image intensifier. No radiologist was in attendance. 17.3 seconds of fluoroscopy time was used. COMPARISON: No prior study is available for comparison. FINDINGS: Images demonstrate contrast in the venous system of the right upper extremity and surgical instrumen ts overlying the right humerus. IMPRESSION: 1. Intraoperative imaging of the right humerus. RPTAT: QQ .Librado Ramirez MD, MD Date Time Electronically viewed and signed by .Librado Ramirez MD, on 11/03/2016 10:48 .R/
--- NOTE | 2016-11-03 12:16 | PN ---
Date/Time of Note Date/Time of Note DATE: 11/03/16 TIME: 12:14 Assessment/Plan VTE Prophylaxis VTE Prophylaxis Intervention: ambulation Lines/Catheters [facility] Peripheral IV Urinary Cath still in place: No Assessment/Plan Chief Complaint/Hosp Course 1. Declotted AV graft right arm. 2. End-stage renal disease, stage 4, HD dependent. 3. The patient has multiple avg thrombectomy in the past. Problems: Assessment/Plan 1 Discharge today Subjective 24 Hr Interval Summary Constitutional: improved, no complaints ENT: no complaints Respiratory: no complaints Cardiovascular: no complaints Gastrointestinal: no complaints Exam/Review of Systems Vital Signs Vitals Vital Signs Date Time Temp Pulse Resp B/P Pulse Ox O2 Delivery O2 Flow Rate FiO2 11/03/16 12:03 69 11/03/16 11:39 98.0 19 104/51 97 11/03/16 04:21 Room Air 11/01/16 23:00 2.0 Intake and Output 11/02/16 11/02/16 11/03/16 15:00 23:00 07:00 Intake Total 850 ml Output Total 1520 ml Balance -670 ml Exam Constitutional: alert, oriented Psych: no complaints ENMT: nl external ears & nose Neck: supple Respiratory: clear to auscultation Cardiovascular: regular rate and rhythm Skin: other (Right AV shunt positive for bruit and gurgling) Lymph: nl lymph nodes Results Result Diagram: 11/03/16 0612 11/03/16 0612 Results 24 hrs Laboratory Tests Test 11/03/16 06:12 White Blood Count 2.3 L Red Blood Count 2.75 L Hemoglobin 9.3 L Hematocrit 28.8 L Mean Corpuscular Volume 104.7 H Mean Corpuscular Hemoglobin 33.8 H Mean Corpuscular Hemoglobin Concent 32.3 Red Cell Distribution Width 16.0 H Platelet Count 95 L Mean Platelet Volume 11.3 H Neutrophils % 64.2 Lymphocytes % 18.6 Monocytes % 11.9 H Eosinophils % 4.0 Basophils % 1.3 Nucleated Red Blood Cells % 0.0 Neutrophils # 1.5 L Lymphocytes # 0.4 L Monocytes # 0.3 Eosinophils # 0.1 Basophils # 0.0 Nucleated Red Blood Cells # 0.0 Sodium Level 142 Potassium Level 3.5 Chloride Level 110 Carbon Dioxide Level 26 Anion Gap 10 Blood Urea Nitrogen 37 #H Creatinine 5.05 #H Glucose Level 90 Calcium Level 8.6 Magnesium Level 2.3 Medications Medications Current Medications Carvedilol (Coreg) 25 mg BID PO Last administered on 11/03/16 08:50; Admin Dose 25 MG; Start 10/31/16 at 21:00 Diltiazem HCl (Cardizem Cd) 120 mg DAILY PO Last administered on 11/03/16 08: 51; Admin Dose 120 MG; Start 11/01/16 at 09:00 Folic Acid (Folic Acid) 1 mg DAILY PO Last administered on 11/03/16 08:51; Admin Dose 1 MG; Start 11/01/16 at 09:00 Multivit/Ca Carb/ B Cmplx/FA/Prenat (Sissy-Poonam) 1 tab DAILY PO Last administered on 11/03/16 08:50; Admin Dose 1 TAB; Start 11/01/16 at 09:00 Ondansetron HCl (Zofran Inj) 4 mg Q6H PRN IV NAUSEA AND/OR VOMITING; Start at 23:00 Acetaminophen (Tylenol Tab) 650 mg Q6H PRN PO PAIN LEVEL 1-3 OR FEVER; Start at 23:00 Acetaminophen (Tylenol Supp) 650 mg Q6H PRN NE PAIN LEVEL 1-3 OR FEVER; Start 10/31/16 at 23:00 Acetaminophen/ Hydrocodone Bitart ([place] (5/325)) 1 tab Q6H PRN PO MODERATE PAIN LEVEL 4-6; Start 10/31/16 at 23:00 Docusate Sodium (Colace) 100 mg Q12H PRN PO CONSTIPATION; Start 10/31/16 at 23: 00 Bisacodyl (Dulcolax) 5 mg DAILY PRN PO CONSTIPATION; Start 10/31/16 at 23:00 Famotidine (Pepcid) 20 mg DAILY PO Last administered on 11/03/16 08:50; Admin Dose 20 MG; Start 11/01/16 at 09:00 DOLLY YEPEZ Nov 03, 2016 12:16
--- NOTE | 2016-11-03 12:19 | PDOCDIS ---
Discharge Instructions CONDITION Patient Condition: Good HOME CARE INSTRUCTIONS: Diet Instructions: 2gm NaSpecial Diet: RENAL, ACTIVITY: Activity Restrictions: Slowly Increase Activity SCHOOL/WORK RELEASE May return to School/Work with: No Restrictions DOLLY YEPEZ Nov 03, 2016 12:19
== END 2016-11-03 13:44 | disposition home or self-care (01) | DRG 252 ==
LOC: E/R 10:46 → INTOOBSV 13:08 → PP2 13:08 → TEL 11-01 22:30 → OBSVTOIN 11-02 13:02
PROVIDERS: ADMIT Internal Medicine Nephrology; ATTEND Internal Medicine Nephrology
PROC: 05WY07Z Revision of Autologous Tissue Substitute in Upper Vein, Open Approach (ICD-10-PCS; 2016-11-02)
PROC: 03WY07Z Revision of Autologous Tissue Substitute in Upper Artery, Open Approach (ICD-10-PCS; principal; 2016-11-02 13:00)
DX: T82.818A Embolism due to vascular prosthetic devices, implants and grafts, initial encounter (principal); N18.6 End stage renal disease; I12.0 Hypertensive chronic kidney disease with stage 5 chronic kidney disease or end stage renal disease; Z99.2 Dependence on renal dialysis; Z95.0 Presence of cardiac pacemaker
CPT/HCPCS: 36415; 71010; 80048; 82962; 83735; 84100; 84484; 85025; 85610; 85730; 87081; 90935; 93005; 93970; 99217; G0378; J0330; J1644; J2250; J3010; J7040; Q9967

== ENCOUNTER 2016-12-31 15:58 | Inpatient (IN) | payer MEDICARE, OTHER ==
[~2016-12-31] VITALS: Ht 152.4 cm; Wt 58.4 kg
[~2016-12-31 15:58] MED LIST: CARV25TA79 PO; CLOP75TA27 PO; DILT120C79 PO; FOLI-49 PO; LEVO25TA50 PO; NEPH PO
--- NOTE | 2016-12-31 20:05 | RADRPT ---
PROCEDURE: AP pelvis CLINICAL INDICATION: Pain status post trauma TECHNIQUE: AP pelvis COMPARISON: None available FINDINGS: Foreshortening of the right femoral neck is present with a subtle sclerosis and cortical lucency at the right femoral neck. Recommend additional imaging to further evaluate for a subtle impaction typ e fracture. Extensive vascular calcifications are present of the aorta and the bilateral iliac arteries. Multip le vascular stents are present superimposed over the expected location of the right iliac , external iliac and common femoral arteries. Healed fractures of the right superior and inferior pubic rami are noted. Generalized osteopenia is present. Mild levoscoliosis of the lumbar spine is present. A nonobstructive bowel gas pattern is present. IMPRESSION: 1. Subtle right femoral neck foreshortening and lucency. Recommend additional imaging of the right hip to evaluate for subtle impaction type fracture. 2. Multiple right external iliac and femoral vascular stents and severe atherosclerotic vascular di sease 3. Generalized osteopenia 4. Healed fractures of the right superior inferior pubic rami 5. Spondylosis and levoscoliosis of the imaged spine. RPTAT: HDC .Hortensia Wolf MD, Date Time Electronically viewed and signed by .Hortensia Wolf MD, on 12/31/2016 20:04 .C/
[2016-12-31] MEDS ORDERED: KETOROLAC 15 MG INJ IV STA (21:20)
[2016-12-31] MEDS ORDERED: ONDANSETRON 4 MG INJ IV STA (21:20)
--- NOTE | 2016-12-31 21:35 | RADRPT ---
PROCEDURE: CT scan of the pelvis without IV contrast. CLINICAL INDICATION: 86-year-old female with bilateral hip pain. TECHNIQUE: Thin section axial, coronal and sagittal images were performed through the abdomen and pelvis without contrast. Radiation Dose: CTDI: 10 and DLP: 290 One or more of the following dose reduction techniques were used: - Automated exposure control. - Adjustment of the mA and/or kV according to patient size. Use of iterative reconstruction technique. COMPARISON: Chest x-ray 08/10/2016 06:18 a.m. FINDINGS: Soft tissues: There is diffuse soft tissue swelling around the circumference of the pelvis. This ma y be the result of anasarca. There is a small ulceration with surrounding edema in the midline of t he anterior upper pelvic wall.. Gastrointestinal: There is fecal material in the colon. There is no evidence of diverticulosis or d iverticulitis. No free fluid is noted in the cul-de-sac. Urinary bladder : The urinary bladder is not visualized. Lymph nodes: No enlarged lymph nodes are identified. Reproductive system and pelvis : The uterus is small contains serosal calcifications. No abnormal a dnexal mass is identified. Bony elements: There is an acute fracture to the superior medial articular surface of the left aceta bulum. There are old healed fracture deformities of the inferior rami of the right and left sides of the pu bis. There are degenerative changes with erosions noted in the posterior column of the left acetabulum. There are degenerative changes in the SI joints. There are degenerative changes in the lower lumbar spine and in the articular facets at L4-5 and L5-S1. There is hypertrophy of the ligamentum flavum at L4-5. This results in a combined soft tissues and bony central canal stenosis. Vasculature: There is a vascular stent extending from the right common iliac artery to the right com mon femoral artery. There is a second vascular stent extending from the distal right femoral artery to the level of the right superficial femoral artery. There are vascular calcifications in the low er abdominal aorta, common iliac arteries, internal and external iliac and common femoral arteries. There is a partially visualized bypass graft beginning near the origin of the right superficial fem oral artery which is only partially visualized on this study. IMPRESSION: 1. There is an acute fracture to the superior medial articular surface of the left acetabulum. 2. 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 3. The right hip is intact. 4. There are old healed fracture deformities to the inferior rami of the right and left sides of th e pubis. 5. Atherosclerotic vascular disease with vascular stents in the right pelvis. 6. Anasarca. 7. The urinary bladder is not visualized. 8. There is a small laceration or ulceration over the midline of the upper anterior pelvic wall. 9. 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 RPTAT:AAJJ Physician Kindra Date Time Electronically viewed and signed by Moses Way Physician on 12/31/2016 21:35 REGLA/
[2016-12-31 21:56] LABS: ADD SCAN DIFF NO
[2016-12-31 21:59] LABS: ABNORMAL IP MESSAGE 1; BASOPHILS % 0.3 % (0.0-2.0); HEMATOCRIT 30.2 % (37.0-47.0); LYMPHOCYTES # 0.4 10^3/ul (0.8-2.9); MEAN CORPUSCULAR HEMOGLOBIN 33.7 pg (29.0-33.0); MEAN CORPUSCULAR HGB CONC 33.1 g/dl (32.0-37.0); MEAN CORPUSCULAR VOLUME 101.7 fl (82.0-101.0); MEAN PLATELET VOLUME 11.5 fl (7.4-10.4); MONOCYTE # 0.4 10^3/ul (0.3-0.9); NEUTROPHIL # 2.1 10^3/ul (1.6-7.5); NEUTROPHILS % 70.4 % (39.0-77.0); PLATELET COUNT 105 10^3/UL (140-415); RED BLOOD COUNT 2.97 10^6/ul (4.20-5.40); RED CELL DISTRIBUTION WIDTH 15.6 % (11.5-14.5); WHITE BLOOD COUNT 2.9 10^3/ul (4.8-10.8)
[2016-12-31 22:00] VITALS: TEMP 98.3
[2016-12-31 22:14] LABS: INR 1.08; PT RATIO 1.1
[2016-12-31 22:15] LABS: PARTIAL THROMBOPLASTIN TIME 39.7 Sec (25.0-35.0)
[2016-12-31 22:18] LABS: ALBUMIN 3.9 g/dl (3.3-4.9); ALBUMIN/GLOBULIN RATIO 1.5; BILIRUBIN,INDIRECT 0.4 mg/dl (0-1.1); BILIRUBIN,TOTAL 0.4 mg/dl (0.2-1.3); CALCIUM 8.6 mg/dl (8.4-10.2); CREATININE 3.96 mg/dl (0.44-1.00); POTASSIUM 4.1 mmol/L (3.5-5.1); TOTAL PROTEIN 6.5 g/dl (6.1-8.1)
--- NOTE | 2016-12-31 22:19 | ERA ---
ER Documentation Chief Complaint Date/Time DATE: 12/31/16 TIME: 22:08 Chief Complaint Patient complains of left groin / hip pain after a fall last night HPI 86-year-old woman brought in by daughter for complaints of left hip pain after falling last night while attempting to ambulate. Patient has chronic difficulty ambulating and usually requires the assistance of a walker although since the fall she has had increased difficulty ambulating on her own. She has had no head or neck injury, no fevers or chills, no chest pain or shortness of breath. Patient has end-stage kidney disease and it was hemodialyzed today. ROS All systems reviewed and are negative except as per history of present illness. Medications Home Meds Reported Medications Folic Acid* (Folic Acid*) 1 Mg Tablet, 1 MG PO DAILY, TAB 10/31/16 Multivit/Ca Carb/B Cmplx/Fa* (Sissy-Poonam*) 1 Tab Tab, 1 TAB PO DAILY, TAB 10/31/16 Levothyroxine Sodium* (Levoxyl*) 25 Mcg Tablet, 25 MCG PO BEFORE BREAKFAST, #30 TAB 10/31/16 Carvedilol* (Carvedilol*) 25 Mg Tablet, 25 MG PO BID, #60 TAB 10/31/16 Clopidogrel Bisulfate (Clopidogrel) 75 Mg Tablet, 75 MG PO DAILY, #30 TAB 10/31/16 Discontinued Reported Medications Diltiazem Hcl* (Diltiazem XT) 120 Mg Capsule.sa, 120 MG PO DAILY, #30 CAP 10/31/16 Allergies Allergies: Coded Allergies: rifampin (Unverified Allergy, Unknown, 12/31/16) PMhx/Soc Hypertension, hypothyroidism, end-stage kidney disease hemodialyzed today, arthritis, osteoporosis, atrial fibrillation History of Surgery: Yes (kidney removed, pacemake, mamta fistula) Anesthesia Reaction: No Hx Neurological Disorder: No Hx Respiratory Disorders: No Hx Cardiac Disorders: Yes (htn, pacemaker, chf) Hx Psychiatric Problems: No Hx Miscellaneous Medical Probl: No Hx Alcohol Use: No Hx Substance Use: No Hx Tobacco Use: No Smoking Status: Never smoker FmHx Family History: diabetes Physical Exam Vitals Vital Signs Date Time Temp Pulse Resp B/P Pulse Ox O2 Delivery O2 Flow Rate FiO2 12/31/16 16:03 98.6 127 20 107/55 95 Physical Exam GENERAL: Well-developed, well-nourished, well-hydrated, in no apparent distress , looks nontoxic in appearance HEENT: Moist mucous membranes, pink conjunctiva, no cervical spine tenderness or step-off deformities, no goiter, no jaundice or icterus, extraocular movements intact without pain. NEURO: Alert and oriented x 1, able to answer simple questions and follow simple commands, no facial asymmetry, pupils equal round reactive to light CARDIAC: Regular rate and rhythm, no murmurs rubs or gallops LUNGS: Clear bilaterally no wheezing crackles or stridor ABDOMEN: Soft nontender, no guarding, no rigidity, no rebound, no psoas sign no obturator sign. Normoactive bowel sounds SKIN: Warm and dry to touch, no abrasions, contusions, or hematomas, no lacerations, no ecchymosis, no target lesions, and without ulcers EXTREMITIES: Left lateral hip tenderness to touch and left lower extremity flexed at the hip and knee, distal pulses equal bilateral PSYCH: Normal affect without agitation or irritability Results 24 hrs Current Medications Medications (Trade) Dose Ordered Sig/Marisa Route PRN Reason Start Time Stop Time Status Last Admin Dose Admin Ondansetron HCl (Zofran Inj) 4 mg ONCE STAT IV 12/31/16 21:20 12/31/16 21:22 DC 12/31/16 22:00 Ketorolac Tromethamine 15 mg 15 mg ONCE STAT IV 12/31/16 21:20 12/31/16 21:22 DC 12/31/16 21:59 Sodium Chloride (NS) 500 ml @ 500 mls/hr Q1H ONCE IV 12/31/16 22:30 12/31/16 23:29 Procedures/MDM IV line was established patient was placed on monitor tech rhythm strip revealed tachycardia at 110 bpm with upright T waves. Patient was afebrile. I administered Toradol 15 mg IV and Zofran 4 mg IV, for later hypotension she received 500 cc normal saline intravenously with improvement in blood pressure. One view chest x-ray performed, read by me shows no acute infiltrates, no pneumothorax, and a pacemaker in the right chest with the right upper extremity graft. One view pelvis x-ray performed, read by me there is osteoarthritic changes throughout the sacrum and possible proximal left femur fracture. There is deformity to the right proximal femur as well although I suspect this is chronic. CT scan of the pelvis and sacrum was performed there is an acute left posterior column acetabulum fracture with diffuse arthritic changes. No other acute fracture noted. Please refer to radiologist dictation for full report. EKG performed, read by me revealed an atrial fibrillation with rapid ventricular rate at 108 bpm, normal axis, narrow QRS complex, no concerning ST elevations or depressions noted. CBC reveals leukopenia, electrolytes, liver function tests and coagulation profiles of all been ordered results are pending I will follow-up. Orthopedic consultation was obtained with Dr. Dia. I spoke to him regarding the patient's presentation, symptomatology, and CT scan findings, he kindly agreed to consult the patient. Patient admitted to [facility] under Dr. Sanchez. Departure Diagnosis: Primary Impression: Acetabulum fracture, left Qualified Code: S32.425A - Closed nondisplaced fracture of posterior wall of left acetabulum, initial encounter Additional Impressions: Inability to ambulate due to left hip Dehydration End stage kidney disease Atrial fibrillation Qualified Code: I48.2 - Chronic atrial fibrillation Condition: BENJAMIN Davis MD Dec 31, 2016 22:19
[2016-12-31 22:30] LABS: TROPONIN-I 0.032 ng/ml (0.00-0.12)
[2016-12-31] MEDS ORDERED: SOD CHLORIDE 0.9% 500 ML IV ONE (22:30)
[2017-01-01 01:11] VITALS: Ht 152.4 cm; Wt 58.4 kg
[2017-01-01 01:22] VITALS: BP 79/74; PULSE 108; RESP 20
[2017-01-01 01:37] VITALS: BP 84/50; PULSE 93; RESP 20
[2017-01-01 02:07] VITALS: BP 96/51; PULSE 92; RESP 20
[2017-01-01] MEDS ORDERED: BISACODYL (EC) 5 MG TAB PO PRN (05:00)
[2017-01-01] MEDS ORDERED: HYDROCODONE/APAP (5/325) TAB PO PRN (05:00)
[2017-01-01] MEDS: LEVOTHYROXINE 25 MCG TAB PO SCH (06:33)
[2017-01-01] MEDS: PANTOPRAZOLE (EC) 40 MG TAB PO SCH (06:33)
[2017-01-01 07:49] VITALS: BP 100/59; RESP 19
[2017-01-01] MEDS: CLOPIDOGREL 75 MG TAB PO SCH (09:24)
[2017-01-01] MEDS: MULTIVIT/CA CARB/B CMPLX/FA TAB PO SCH (09:24)
[2017-01-01] MEDS: DOCUSATE SODIUM 100 MG CAP PO SCH ×3 (09:25→22:30)
[2017-01-01] MEDS: FOLIC ACID 1 MG TAB PO SCH (09:25)
[2017-01-01] MEDS: HEPARIN 5,000 UNIT/0.5 ML VIAL SC SCH ×2 (09:29→22:32)
--- NOTE | 2017-01-01 09:32 | RADRPT ---
PROCEDURE: XR Chest. CLINICAL INDICATION: Trauma due to a fall. Chest pain. TECHNIQUE: Single frontal view. COMPARISON: 11/01/2016. FINDINGS: There is mild atelectasis at the left lung base. The lungs are otherwise clear. The heart is enlarged. There is calcification in the aorta consistent with atherosclerosis. There is a right-sided dual lead permanent pacemaker. A vascular stent is present overlying the mid right humerus. There is also a HeROcatheter overlying the right side of chest with the tip in the right atrium. There is a small left pleural effusion. There is no right pleural effusion. There is no pneumothorax. There are severe degenerative changes of the left glenohumeral joint with osteophytes, subarticular sclerosis, and deformity. IMPRESSION: 1. No significant change from 11/01/2016. RPTAT: QQ .Librado Ramirez MD, Date Time Electronically viewed and signed by .Librado Ramirez MD, on 01/01/2017 09:32 .R/
--- NOTE | 2017-01-01 18:03 | HP ---
Date/Time of Note Date/Time of Note DATE: 01/01/17 TIME: 17:59 Assessment/Plan VTE Prophylaxis VTE Prophylaxis Intervention: other Lines/Catheters IV [facility] Saline Lock Urinary Cath still in place: No Assessment/Plan Chief Complaint/Hosp Course 1. There is an acute fracture to the superior medial articular surface of the left acetabulum. 2. 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 3. S/P FALL 4. There are old healed fracture deformities to the inferior rami of the right and left sides of the pubis. 5. Atherosclerotic vascular disease with vascular stents in the right pelvis. 6. Anasarca. 7. ESRD 8. There is a small laceration or ulceration over the midline of the upper anterior pelvic wall. 9. 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 10 AFIB PLAN ORTHO HD AM Problems: HPI/ROS Admit Date/Time Admit Date/Time Dec 31, 2016 at 21:57 Hx of Present Illness S/P FALL ESRD ROS Eyes: no complaints ENT: no complaints Respiratory: no complaints Cardiovascular: no complaints Gastrointestinal: no complaints Genitourinary: no complaints Musculoskeletal: restricted range of motion Skin: no complaints Neurologic: no complaints Endocrine: no complaints Lymphatic: no complaints Psychological: no complaints Immunologic: no complaints PMH/Family/Social Past Medical History Medical History: congestive heart failure, hypertension, renal disease Past Surgical History Past Surgical Hx: other (PACEMAKER PLACEMENT,AVF PLACEMENT) Family History Significant Family History: no pertinent family hx Social History Alcohol Use: none Smoking Status: Never smoker Exam/Review of Systems Vital Signs Vitals Vital Signs Date Time Temp Pulse Resp B/P Pulse Ox O2 Delivery O2 Flow Rate FiO2 01/01/17 07:49 97.5 79 19 100/59 98 01/01/17 02:07 Room Air 01/01/17 01:38 2.0 Intake and Output 12/31/16 12/31/16 01/01/17 15:00 23:00 07:00 Intake Total 0 ml Balance 0 ml Exam Constitutional: alert, oriented Psych: no complaints Head: normocephalic Eyes: nl conjunctiva ENMT: nl external ears & nose Neck: non-tender, supple Respiratory: clear to auscultation, normal air movement Cardiovascular: irregular rhythm Gastrointestinal: bowel sounds (+), nl liver, spleen, non-tender, soft Extremities: edema (++) Neurological: CAMERA TECHNICIAN II-XII intact, nl mental status Labs Result Diagram: 12/31/16213912/31/162139 Medications Medications Current Medications Carvedilol (Coreg) 25 mg BID PO Last administered on 01/01/17 09:25; Admin Dose 25 MG; Start 01/01/17 at 09:00 Clopidogrel Bisulfate (plaVIX) 75 mg DAILY PO Last administered on 01/01/17 09 :24; Admin Dose 75 MG; Start 01/01/17 at 09:00 Folic Acid (Folic Acid) 1 mg DAILY PO Last administered on 01/01/17 09:25; Admin Dose 1 MG; Start 01/01/17 at 09:00 Multivit/Ca Carb/ B Cmplx/FA/Prenat (Sissy-Poonam) 1 tab DAILY PO Last administered on 01/01/17 09:24; Admin Dose 1 TAB; Start 01/01/17 at 09:00 Heparin Sodium (Porcine) (Heparin (5000 Units/0.5 ml)) 5,000 unit BID SC Last administered on 01/01/17 09:29; Admin Dose 5,000 UNIT; Start 01/01/17 at 09:00 Acetaminophen (Tylenol Tab) 650 mg Q6H PRN PO PAIN AND OR ELEVATED TEMP; Start 01/01/17 at 05:00 Pantoprazole (Protonix Tab) 40 mg DAILY@06 PO Last administered on 01/01/17 06 :33; Admin Dose 40 MG; Start 01/01/17 at 06:00 Docusate Sodium (Colace) 100 mg TID PO Last administered on 01/01/17 09:25; Admin Dose 100 MG; Start 01/01/17 at 09:00 Bisacodyl (Dulcolax) 10 mg BID PRN PO CONSTIPATION; Start 01/01/17 at 05:00 Acetaminophen/ Hydrocodone Bitart ([place] (5/325)) 1 tab Q6H PRN PO PAIN; Start 01/01/17 at 05:00 SHEEBA NEGRON MD Jan 01, 2017 18:03
[2017-01-01 20:05] VITALS: BP 82/42; RESP 20
[2017-01-01 22:23] VITALS: BP 82/45
[2017-01-01] MEDS: ACETAMINOPHEN 325 MG TAB PO PRN (23:20)
[2017-01-02] VITALS (9 sets, daily range): BP systolic 81–106; BP diastolic 43–56; PULSE 66–70; RESP 18
[2017-01-02 05:26] LABS: ADD SCAN DIFF NO
[2017-01-02 05:38] LABS: ABNORMAL IP MESSAGE 1; BASOPHILS % 0.6 % (0.0-2.0); EOSINOPHILS # 0.1 10^3/ul (0.0-0.5); EOSINOPHILS % 1.4 % (0.0-7.0); HEMATOCRIT 28.1 % (37.0-47.0); HEMOGLOBIN 8.8 g/dl (12.0-16.0); LYMPHOCYTES # 0.5 10^3/ul (0.8-2.9); LYMPHOCYTES % 14.6 % (15.0-51.0); MEAN CORPUSCULAR HEMOGLOBIN 32.7 pg (29.0-33.0); MEAN CORPUSCULAR HGB CONC 31.3 g/dl (32.0-37.0); MEAN CORPUSCULAR VOLUME 104.5 fl (82.0-101.0); MEAN PLATELET VOLUME 11.6 fl (7.4-10.4); MONOCYTE # 0.4 10^3/ul (0.3-0.9); MONOCYTES % 9.8 % (0.0-11.0); NEUTROPHIL # 2.6 10^3/ul (1.6-7.5); NEUTROPHILS % 73.3 % (39.0-77.0); PLATELET COUNT 82 10^3/UL (140-415); RED BLOOD COUNT 2.69 10^6/ul (4.20-5.40); RED CELL DISTRIBUTION WIDTH 15.7 % (11.5-14.5); WHITE BLOOD COUNT 3.6 10^3/ul (4.8-10.8)
[2017-01-02 06:14] LABS: CALCIUM 7.6 mg/dl (8.4-10.2); CREATININE 5.46 mg/dl (0.44-1.00); POTASSIUM 4.6 mmol/L (3.5-5.1)
[2017-01-02] MEDS: LEVOTHYROXINE 25 MCG TAB PO SCH (06:25)
[2017-01-02] MEDS: PANTOPRAZOLE (EC) 40 MG TAB PO SCH (06:25)
[2017-01-02] MEDS: DOCUSATE SODIUM 100 MG CAP PO SCH ×3 (08:50→21:00)
[2017-01-02] MEDS: MULTIVIT/CA CARB/B CMPLX/FA TAB PO SCH (08:50)
[2017-01-02] MEDS: FOLIC ACID 1 MG TAB PO SCH (08:51)
[2017-01-02] MEDS: CLOPIDOGREL 75 MG TAB PO SCH (08:51)
[2017-01-02] MEDS: HEPARIN 5,000 UNIT/0.5 ML VIAL SC SCH ×2 (09:00→20:40)
[2017-01-02] MEDS: ALBUTEROL/IPRATROPIUM (NEB) 3 ML AMP HHN PRN ×2 (10:00→14:28)
[2017-01-02] MEDS: ACETAMINOPHEN 325 MG TAB PO PRN (11:57)
--- NOTE | 2017-01-02 22:46 | PN ---
Date/Time of Note Date/Time of Note DATE: 01/02/17 TIME: 22:46 Assessment/Plan VTE Prophylaxis VTE Prophylaxis Intervention: other Lines/Catheters IV [facility] Saline Lock Urinary Cath still in place: No Assessment/Plan Chief Complaint/Hosp Course 1. There is an acute fracture to the superior medial articular surface of the left acetabulum. 2. 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 3. S/P FALL 4. There are old healed fracture deformities to the inferior rami of the right and left sides of the pubis. 5. Atherosclerotic vascular disease with vascular stents in the right pelvis. 6. Anasarca. 7. ESRD 8. There is a small laceration or ulceration over the midline of the upper anterior pelvic wall. 9. 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 10 AFIB PLAN ORTHO HD AM snf soon Problems: Subjective 24 Hr Interval Summary Respiratory: No shortness of breath Cardiovascular: no complaints Exam/Review of Systems Vital Signs Vitals Vital Signs Date Time Temp Pulse Resp B/P Pulse Ox O2 Delivery O2 Flow Rate FiO2 01/02/17 20:28 97.7 62 18 81/45 98 01/02/17 18:13 2.0 01/02/17 14:27 Nasal Cannula Intake and Output 01/01/17 01/01/17 01/02/17 15:00 23:00 07:00 Intake Total 600 ml 400 ml Output Total 0 ml 0 ml Balance 600 ml 400 ml Exam Neck: supple Respiratory: clear to auscultation Cardiovascular: regular rate and rhythm Gastrointestinal: soft Musculoskeletal: nl extremities to inspection Extremities: normal pulses Results Result Diagram: 01/02/17 0442 01/02/17 0442 Results 24 hrs Laboratory Tests Test 01/02/17 04:42 White Blood Count 3.6 #L Red Blood Count 2.69 L Hemoglobin 8.8 L Hematocrit 28.1 L Mean Corpuscular Volume 104.5 H Mean Corpuscular Hemoglobin 32.7 Mean Corpuscular Hemoglobin Concent 31.3 L Red Cell Distribution Width 15.7 H Platelet Count 82 #L Mean Platelet Volume 11.6 H Neutrophils % 73.3 Lymphocytes % 14.6 L Monocytes % 9.8 Eosinophils % 1.4 Basophils % 0.6 Nucleated Red Blood Cells % 0.0 Neutrophils # 2.6 Lymphocytes # 0.5 L Monocytes # 0.4 Eosinophils # 0.1 Basophils # 0.0 Nucleated Red Blood Cells # 0.0 Sodium Level 133 L Potassium Level 4.6 Chloride Level 103 Carbon Dioxide Level 23 Anion Gap 12 Blood Urea Nitrogen 46 #H Creatinine 5.46 H Glucose Level 99 Calcium Level 7.6 L Medications Medications Current Medications Carvedilol (Coreg) 25 mg BID PO Last administered on 01/02/17 08:51; Admin Dose 25 MG; Start 01/01/17 at 09:00 Clopidogrel Bisulfate (plaVIX) 75 mg DAILY PO Last administered on 01/02/17 08 :51; Admin Dose 75 MG; Start 01/01/17 at 09:00 Folic Acid (Folic Acid) 1 mg DAILY PO Last administered on 01/02/17 08:51; Admin Dose 1 MG; Start 01/01/17 at 09:00 Multivit/Ca Carb/ B Cmplx/FA/Prenat (Sissy-Poonam) 1 tab DAILY PO Last administered on 01/02/17 08:50; Admin Dose 1 TAB; Start 01/01/17 at 09:00 Heparin Sodium (Porcine) (Heparin (5000 Units/0.5 ml)) 5,000 unit BID SC Last administered on 01/02/17 09:00; Admin Dose 5,000 UNIT; Start 01/01/17 at 09:00 Acetaminophen (Tylenol Tab) 650 mg Q6H PRN PO PAIN AND OR ELEVATED TEMP Last administered on 01/02/17 11:57; Admin Dose 650 MG; Start 01/01/17 at 05:00 Pantoprazole (Protonix Tab) 40 mg DAILY@06 PO Last administered on 01/02/17 06 :25; Admin Dose 40 MG; Start 01/01/17 at 06:00 Docusate Sodium (Colace) 100 mg TID PO Last administered on 01/02/17 08:50; Admin Dose 100 MG; Start 01/01/17 at 09:00 Bisacodyl (Dulcolax) 10 mg BID PRN PO CONSTIPATION; Start 01/01/17 at 05:00 Acetaminophen/ Hydrocodone Bitart ([place] (5/325)) 1 tab Q6H PRN PO PAIN; Start 01/01/17 at 05:00 SHEEBA NEGRON MD Jan 02, 2017 22:46
[2017-01-03] VITALS: BP_SYST 91; BP_SYST 92; BP_DIAS 48; BP_DIAS 50; PULSE 69; PULSE 70
[2017-01-03] MEDS: PANTOPRAZOLE (EC) 40 MG TAB PO SCH (06:22)
[2017-01-03] MEDS: LEVOTHYROXINE 25 MCG TAB PO SCH (06:22)
[2017-01-03 08:17] VITALS: BP 93/48; RESP 20
[2017-01-03] MEDS: FOLIC ACID 1 MG TAB PO SCH (11:08)
[2017-01-03] MEDS: DOCUSATE SODIUM 100 MG CAP PO SCH ×3 (11:08→20:33)
[2017-01-03] MEDS: HEPARIN 5,000 UNIT/0.5 ML VIAL SC SCH ×2 (11:12→20:40)
[2017-01-03] MEDS: CLOPIDOGREL 75 MG TAB PO SCH (11:18)
[2017-01-03] MEDS: MULTIVIT/CA CARB/B CMPLX/FA TAB PO SCH (11:18)
[2017-01-03 20:45] VITALS: BP 83/47; RESP 20
--- NOTE | 2017-01-03 20:57 | PN ---
Date/Time of Note Date/Time of Note DATE: 01/03/17 TIME: 20:56 Assessment/Plan VTE Prophylaxis VTE Prophylaxis Intervention: other Lines/Catheters IV C[facility]ter Type (from [facility] Saline Lock Urinary Cath still in place: No Assessment/Plan Chief Complaint/Hosp Course 1. There is an acute fracture to the superior medial articular surface of the left acetabulum. 2. 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 3. S/P FALL 4. There are old healed fracture deformities to the inferior rami of the right and left sides of the pubis. 5. Atherosclerotic vascular disease with vascular stents in the right pelvis. 6. Anasarca. 7. ESRD 8. There is a small laceration or ulceration over the midline of the upper anterior pelvic wall. 9. 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 10 AFIB PLAN ORTHO HD AM snf soon Problems: Subjective 24 Hr Interval Summary Respiratory: no complaints Cardiovascular: no complaints Exam/Review of Systems Vital Signs Vitals Vital Signs Date Time Temp Pulse Resp B/P Pulse Ox O2 Delivery O2 Flow Rate FiO2 01/03/17 20:45 98.0 78 20 83/47 100 01/03/17 19:25 2.0 01/02/17 14:27 Nasal Cannula Intake and Output 01/02/17 01/02/17 01/03/17 15:00 23:00 07:00 Intake Total 820 ml 900 ml Output Total 2000 ml Balance 820 ml -1100 ml Exam Neck: supple Respiratory: clear to auscultation Cardiovascular: regular rate and rhythm Gastrointestinal: bowel sounds, soft Musculoskeletal: range of motion (PAIN +) Extremities: edema (+) Results Result Diagram: 01/02/17 0442 01/02/17 0442 Medications Medications Current Medications Carvedilol (Coreg) 25 mg BID PO Last administered on 01/02/17 08:51; Admin Dose 25 MG; Start 01/01/17 at 09:00 Clopidogrel Bisulfate (plaVIX) 75 mg DAILY PO Last administered on 01/03/17 11 :18; Admin Dose 75 MG; Start 01/01/17 at 09:00 Folic Acid (Folic Acid) 1 mg DAILY PO Last administered on 01/03/17 11:08; Admin Dose 1 MG; Start 01/01/17 at 09:00 Multivit/Ca Carb/ B Cmplx/FA/Prenat (Sissy-Poonam) 1 tab DAILY PO Last administered on 01/03/17 11:18; Admin Dose 1 TAB; Start 01/01/17 at 09:00 Heparin Sodium (Porcine) (Heparin (5000 Units/0.5 ml)) 5,000 unit BID SC Last administered on 01/03/17 20:40; Admin Dose 5,000 UNIT; Start 01/01/17 at 09:00 Acetaminophen (Tylenol Tab) 650 mg Q6H PRN PO PAIN AND OR ELEVATED TEMP Last administered on 01/02/17 11:57; Admin Dose 650 MG; Start 01/01/17 at 05:00 Pantoprazole (Protonix Tab) 40 mg DAILY@06 PO Last administered on 01/03/17 06 :22; Admin Dose 40 MG; Start 01/01/17 at 06:00 Docusate Sodium (Colace) 100 mg TID PO Last administered on 01/03/17 20:33; Admin Dose 100 MG; Start 01/01/17 at 09:00 Bisacodyl (Dulcolax) 10 mg BID PRN PO CONSTIPATION; Start 01/01/17 at 05:00 Acetaminophen/ Hydrocodone Bitart ([place] (5/325)) 1 tab Q6H PRN PO PAIN; Start 01/01/17 at 05:00 SHEEBA NEGRON MD Jan 03, 2017 20:57
[2017-01-03 22:32] VITALS: BP 78/42; PULSE 77
[2017-01-04 04:30] VITALS: BP 85/40; PULSE 73; RESP 20
[2017-01-04] MEDS: LEVOTHYROXINE 25 MCG TAB PO SCH (06:23)
[2017-01-04] MEDS: PANTOPRAZOLE (EC) 40 MG TAB PO SCH (06:23)
[2017-01-04 07:00] VITALS: BP 102/51; RESP 18
[2017-01-04] MEDS: FOLIC ACID 1 MG TAB PO SCH (09:03)
[2017-01-04] MEDS: CLOPIDOGREL 75 MG TAB PO SCH (09:03)
[2017-01-04] MEDS: MULTIVIT/CA CARB/B CMPLX/FA TAB PO SCH (09:03)
[2017-01-04] MEDS: DOCUSATE SODIUM 100 MG CAP PO SCH ×3 (09:03→21:14)
[2017-01-04] MEDS: HEPARIN 5,000 UNIT/0.5 ML VIAL SC SCH ×2 (09:05→21:16)
--- NOTE | 2017-01-04 15:33 | PN ---
Date/Time of Note Date/Time of Note DATE: 01/04/17 TIME: 15:32 Assessment/Plan VTE Prophylaxis VTE Prophylaxis Intervention: heparin Lines/Catheters IV Catheter Type (from [facility]): Saline Lock Urinary Cath still in place: No Assessment/Plan Chief Complaint/Hosp Course 1. There is an acute fracture to the superior medial articular surface of the left acetabulum. 2. 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 3. S/P FALL 4. There are old healed fracture deformities to the inferior rami of the right and left sides of the pubis. 5. Atherosclerotic vascular disease with vascular stents in the right pelvis. 6. Anasarca. 7. ESRD 8. There is a small laceration or ulceration over the midline of the upper anterior pelvic wall. 9. 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 10 AFIB Problems: Assessment/Plan 1. No surgery per dr Dia 2. Transfer to [facility] Subjective 24 Hr Interval Summary Constitutional: no complaints Musculoskeletal: bone/joint pain Exam/Review of Systems Vital Signs Vitals Vital Signs Date Time Temp Pulse Resp B/P Pulse Ox O2 Delivery O2 Flow Rate FiO2 01/04/17 08:10 Nasal Cannula 2.0 01/04/17 07:00 98.7 75 18 102/51 99 Intake and Output 01/03/17 01/03/17 01/04/17 15:00 23:00 07:00 Intake Total 600 ml 300 ml Output Total 0 ml Balance 600 ml 300 ml Exam Constitutional: alert, oriented Respiratory: clear to auscultation Cardiovascular: regular rate and rhythm Musculoskeletal: muscle weakness Results Result Diagram: 01/02/17 0442 01/02/17 0442 Medications Medications Current Medications Carvedilol (Coreg) 25 mg BID PO Last administered on 01/02/17 08:51; Admin Dose 25 MG; Start 01/01/17 at 09:00 Clopidogrel Bisulfate (plaVIX) 75 mg DAILY PO Last administered on 01/04/17 09 :03; Admin Dose 75 MG; Start 01/01/17 at 09:00 Folic Acid (Folic Acid) 1 mg DAILY PO Last administered on 01/04/17 09:03; Admin Dose 1 MG; Start 01/01/17 at 09:00 Multivit/Ca Carb/ B Cmplx/FA/Prenat (Sissy-Poonam) 1 tab DAILY PO Last administered on 01/04/17 09:03; Admin Dose 1 TAB; Start 01/01/17 at 09:00 Heparin Sodium (Porcine) (Heparin (5000 Units/0.5 ml)) 5,000 unit BID SC Last administered on 01/04/17 09:05; Admin Dose 5,000 UNIT; Start 01/01/17 at 09:00 Acetaminophen (Tylenol Tab) 650 mg Q6H PRN PO PAIN AND OR ELEVATED TEMP Last administered on 01/02/17 11:57; Admin Dose 650 MG; Start 01/01/17 at 05:00 Pantoprazole (Protonix Tab) 40 mg DAILY@06 PO Last administered on 01/04/17 06 :23; Admin Dose 40 MG; Start 01/01/17 at 06:00 Docusate Sodium (Colace) 100 mg TID PO Last administered on 01/04/17 12:42; Admin Dose 100 MG; Start 01/01/17 at 09:00 Bisacodyl (Dulcolax) 10 mg BID PRN PO CONSTIPATION; Start 01/01/17 at 05:00 Acetaminophen/ Hydrocodone Bitart ([place] (5/325)) 1 tab Q6H PRN PO PAIN; Start 01/01/17 at 05:00 DOLLY YEPEZ Jan 04, 2017 15:33
--- NOTE | 2017-01-04 15:34 | PDOCDIS ---
Discharge Instructions CONDITION Patient Condition: Serious ACTIVITY: Activity Restrictions: Slowly Increase Activity SCHOOL/WORK RELEASE May return to School/Work with: With Restrictions DOLLY YEPEZ Jan 04, 2017 15:34
[2017-01-04] MEDS ORDERED: BISA5TAB6 PO (15:36)
[2017-01-04] MEDS ORDERED: ACET325T40 PO (15:36)
[2017-01-04] MEDS ORDERED: DOCU-216 PO (15:36)
--- NOTE | 2017-01-04 16:10 | CONS ---
Date/Time of Note Date/Time of Note DATE: 01/04/17 TIME: 15:57 Consultation Date/Type/Reason Admit Date/Time Dec 31, 2016 at 21:57 Date of Consultation: Jan 01, 2017 Type of Consultation: Orthopedic surgical consultati Hx of Present Illness Patient is a 86-year-old female who was admitted through the emergency room on December 31, 2016 when she was brought in to the emergency room because of the pain involving her left hip. According to the patient and the family members she obviously lost her balance during her ambulation and fell landing on her left buttock following the fall she was not able to stand up or walk because of the severe pain. She is known to have end-stage kidney disease on dialysis. She usually able to ambulate herself with walker prior to the injury. My examination revealed a 86-year-old female who is showing painful limited motion of the left hip. There is a tenderness around the left groin and inguinal area on deep palpation. There were no obvious shortening or abnormal rotation of the left lower extremity which is usually the sign of fracture involving the hip. X-rays and CT scan of the pelvis revealed the presence of fracture involving the anterior medial column of the left acetabulum with mild involvement of the wart itself the fracture is in acceptable alignment. It was noted that there is a old healed fracture involving both left and right inferior pubic rami. There was a degenerative cyst involving posterior column of the left acet diagnostic impression: Pelvic fracture involving anterior column of the right acetabulum, in acceptable alignment Treatment plan: Conservative nonsurgical treatment with bed rest for 4-6 weeks with no weightbearing on the left lower extremity and is less range of motion of her left hip as possible She will probably need longterm facility placement for further follow-up. Further also follow-up can be done as an outpatient in 7-10 days with repeated x -rays. Constitutional: no complaints Eyes: no complaints ENT: no complaints Respiratory: no complaints Cardiovascular: no complaints Gastrointestinal: no complaints Genitourinary: no complaints Musculoskeletal: bone/joint pain Skin: no complaints Neurologic: no complaints Lymphatic: no complaints Psychological: no complaints Immunologic: no complaints Past Medical History Medical History: congestive heart failure, hypertension, renal disease Past Surgical History Past Surgical Hx: other (PACEMAKER PLACEMENT,AVF PLACEMENT) Social History Alcohol Use: none Smoking Status: Never smoker Exam/Review of Systems Vital Signs Vitals Vital Signs Date Time Temp Pulse Resp B/P Pulse Ox O2 Delivery O2 Flow Rate FiO2 01/04/17 08:10 Nasal Cannula 2.0 01/04/17 07:00 98.7 75 18 102/51 99 Intake and Output 01/03/17 01/03/17 01/04/17 15:00 23:00 07:00 Intake Total 600 ml 300 ml Output Total 0 ml Balance 600 ml 300 ml Results Result Diagram: 01/02/17 0442 01/02/17 0442 Medications Medications Current Medications Carvedilol (Coreg) 25 mg BID PO Last administered on 01/02/17 08:51; Admin Dose 25 MG; Start 01/01/17 at 09:00 Clopidogrel Bisulfate (plaVIX) 75 mg DAILY PO Last administered on 01/04/17 09 :03; Admin Dose 75 MG; Start 01/01/17 at 09:00 Folic Acid (Folic Acid) 1 mg DAILY PO Last administered on 01/04/17 09:03; Admin Dose 1 MG; Start 01/01/17 at 09:00 Multivit/Ca Carb/ B Cmplx/FA/Prenat (Sissy-Poonam) 1 tab DAILY PO Last administered on 01/04/17 09:03; Admin Dose 1 TAB; Start 01/01/17 at 09:00 Heparin Sodium (Porcine) (Heparin (5000 Units/0.5 ml)) 5,000 unit BID SC Last administered on 01/04/17 09:05; Admin Dose 5,000 UNIT; Start 01/01/17 at 09:00 Acetaminophen (Tylenol Tab) 650 mg Q6H PRN PO PAIN AND OR ELEVATED TEMP Last administered on 01/02/17 11:57; Admin Dose 650 MG; Start 01/01/17 at 05:00 Pantoprazole (Protonix Tab) 40 mg DAILY@06 PO Last administered on 01/04/17 06 :23; Admin Dose 40 MG; Start 01/01/17 at 06:00 Docusate Sodium (Colace) 100 mg TID PO Last administered on 01/04/17 12:42; Admin Dose 100 MG; Start 01/01/17 at 09:00 Bisacodyl (Dulcolax) 10 mg BID PRN PO CONSTIPATION; Start 01/01/17 at 05:00 Acetaminophen/ Hydrocodone Bitart ([place] (5/325)) 1 tab Q6H PRN PO PAIN; Start 01/01/17 at 05:00 CHIQUI BARRERA MD Jan 04, 2017 16:08
[2017-01-04 17:59] VITALS: BP 126/73; PULSE 98; RESP 18
[2017-01-04] MEDS: ALBUMIN HUMAN 25% 100 ML IV SCH ×2 (18:00→19:00)
[2017-01-04 22:27] VITALS: BP 104/53; RESP 20
[2017-01-05 05:44] LABS: CALCIUM 7.7 mg/dl (8.4-10.2); CREATININE 6.61 mg/dl (0.44-1.00); POTASSIUM 5.2 mmol/L (3.5-5.1)
[2017-01-05] MEDS: PANTOPRAZOLE (EC) 40 MG TAB PO SCH (05:53)
[2017-01-05] MEDS: LEVOTHYROXINE 25 MCG TAB PO SCH (05:53)
[2017-01-05 07:00] VITALS: BP 82/45; RESP 20
[2017-01-05] MEDS: DOCUSATE SODIUM 100 MG CAP PO SCH ×3 (10:42→21:15)
[2017-01-05] MEDS: FOLIC ACID 1 MG TAB PO SCH (10:42)
[2017-01-05] MEDS: CLOPIDOGREL 75 MG TAB PO SCH (10:42)
[2017-01-05] MEDS: MULTIVIT/CA CARB/B CMPLX/FA TAB PO SCH (10:43)
[2017-01-05] MEDS: HEPARIN 5,000 UNIT/0.5 ML VIAL SC SCH ×2 (10:48→21:22)
[2017-01-05] MEDS ORDERED: NA POLYST SULFON 15 GM/60 ML BTL PO ONE (15:00)
--- NOTE | 2017-01-05 15:00 | PN ---
Date/Time of Note Date/Time of Note DATE: 01/05/17 TIME: 14:56 Assessment/Plan VTE Prophylaxis VTE Prophylaxis Intervention: ambulation Lines/Catheters IV Catheter Type (from [facility] Saline Lock Urinary Cath still in place: No Assessment/Plan Chief Complaint/Hosp Course 1. There is an acute fracture to the superior medial articular surface of the left acetabulum. 2. 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 3. S/P FALL 4. There are old healed fracture deformities to the inferior rami of the right and left sides of the pubis. 5. Atherosclerotic vascular disease with vascular stents in the right pelvis. 6. Anasarca. 7. ESRD 8. There is a small laceration or ulceration over the midline of the upper anterior pelvic wall. 9. 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 10 AFIB 11. Clotted AV shunt Problems: Assessment/Plan 1.Dr Pino for line insertion 2. Kayaxalate for hyperkalemia Subjective 24 Hr Interval Summary Constitutional: no complaints Exam/Review of Systems Vital Signs Vitals Vital Signs Date Time Temp Pulse Resp B/P Pulse Ox O2 Delivery O2 Flow Rate FiO2 01/05/17 07:00 98.9 76 20 82/45 100 01/05/17 06:23 2.0 01/04/17 20:10 Nasal Cannula Intake and Output 01/04/17 01/04/17 01/05/17 15:00 23:00 07:00 Intake Total 1120 ml 300 ml Output Total 0 ml Balance 1120 ml 300 ml Exam Constitutional: alert, oriented ENMT: nl external ears & nose Neck: supple Respiratory: clear to auscultation Musculoskeletal: muscle weakness, other (av shunt neg for bruit and gurgling) Results Result Diagram: 01/02/17 0442 01/05/17 0439 Results 24 hrs Laboratory Tests Test 01/05/17 04:39 Sodium Level 134 L Potassium Level 5.2 H Chloride Level 102 Carbon Dioxide Level 23 Anion Gap 14 Blood Urea Nitrogen 54 H Creatinine 6.61 H Glucose Level 82 Calcium Level 7.7 L Medications Medications Current Medications Carvedilol (Coreg) 25 mg BID PO Last administered on 01/02/17t 08:51; Admin Dose 25 MG; Start 01/01/17 at 09:00 Clopidogrel Bisulfate (plaVIX) 75 mg DAILY PO Last administered on 01/05/17 10: 42; Admin Dose 75 MG; Start 01/01/17 at 09:00 Folic Acid (Folic Acid) 1 mg DAILY PO Last administered on 01/05/17 10:42; Admin Dose 1 MG; Start 01/01/17 at 09:00 Multivit/Ca Carb/ B Cmplx/FA/Prenat (Sissy-Poonam) 1 tab DAILY PO Last administered on 01/05/17 10:43; Admin Dose 1 TAB; Start 01/01/17 at 09:00 Heparin Sodium (Porcine) (Heparin (5000 Units/0.5 ml)) 5,000 unit BID SC Last administered on 01/05/17 10:48; Admin Dose 5,000 UNIT; Start 01/01/17 at 09:00 Acetaminophen (Tylenol Tab) 650 mg Q6H PRN PO PAIN AND OR ELEVATED TEMP Last administered on 01/02/17 11:57; Admin Dose 650 MG; Start 01/01/17 at 05:00 Pantoprazole (Protonix Tab) 40 mg DAILY@06 PO Last administered on 01/05/17 05: 53; Admin Dose 40 MG; Start 01/01/17 at 06:00 Docusate Sodium (Colace) 100 mg TID PO Last administered on 01/05/17 10:42; Admin Dose 100 MG; Start 01/01/17 at 09:00 Bisacodyl (Dulcolax) 10 mg BID PRN PO CONSTIPATION; Start 01/01/17 at 05:00 Acetaminophen/ Hydrocodone Bitart ([place] (5/325)) 1 tab Q6H PRN PO PAIN; Start 01/01/17 at 05:00 DOLLY YEPEZ Jan 05, 2017 15:00
--- NOTE | 2017-01-05 16:11 | CONS ---
Date/Time of Note Date/Time of Note DATE: 01/05/17 TIME: 16:08 Assessment/Plan Assessment/Plan Additional Assessment/Plan Patient with clotted right upper extremity AV graft Anemia with a hemoglobin of 8.8 plan for thrombectomy right upper extremity AV graft and anemia is resolved Potassium is 5.2 Would treat hyperkalemia medically Discussed with the referring physicians Consultation Date/Type/Reason Admit Date/Time Dec 31, 2016 at 21:57 Reason for Consultation Clotted right upper extremity AV graft Hx of Present Illness Patient has a right upper extremity AV graft which is clotted Constitutional: no complaints Eyes: no complaints ENT: no complaints Respiratory: no complaints Cardiovascular: no complaints Gastrointestinal: no complaints Genitourinary: no complaints Musculoskeletal: bone/joint pain Skin: no complaints Neurologic: no complaints Lymphatic: no complaints Psychological: no complaints Immunologic: no complaints Past Medical History Medical History: congestive heart failure, hypertension, renal disease Past Surgical History Past Surgical Hx: other (PACEMAKER PLACEMENT,AVF PLACEMENT) Family History Significant Family History: COPD Social History Alcohol Use: none Smoking Status: Never smoker Exam/Review of Systems Vital Signs Vitals Vital Signs Date Time Temp Pulse Resp B/P Pulse Ox O2 Delivery O2 Flow Rate FiO2 01/05/17 07:00 98.9 76 20 82/45 100 01/05/17 06:23 2.0 01/04/17 20:10 Nasal Cannula Intake and Output 01/04/17 01/04/17 01/05/17 15:00 23:00 07:00 Intake Total 1120 ml 300 ml Output Total 0 ml Balance 1120 ml 300 ml Exam Eyes: EOMI, PERRL, nl conjunctiva, nl lids, nl sclera ENMT: nl external ears & nose, nl lips & teeth, nl nasal mucosa & septum Neck: non-tender, supple Respiratory: clear to auscultation, normal air movement Cardiovascular: nl pulses, regular rate and rhythm Gastrointestinal: nl liver, spleen, non-tender, soft Results Result Diagram: 01/02/17 0442 01/05/17 0439 Results 24 hrs Laboratory Tests Test 01/05/17 04:39 Sodium Level 134 L Potassium Level 5.2 H Chloride Level 102 Carbon Dioxide Level 23 Anion Gap 14 Blood Urea Nitrogen 54 H Creatinine 6.61 H Glucose Level 82 Calcium Level 7.7 L Medications Medications Current Medications Carvedilol (Coreg) 25 mg BID PO Last administered on 01/02/17 08:51; Admin Dose 25 MG; Start 01/01/17 at 09:00 Clopidogrel Bisulfate (plaVIX) 75 mg DAILY PO Last administered on 01/05/17 10: 42; Admin Dose 75 MG; Start 01/01/17 at 09:00 Folic Acid (Folic Acid) 1 mg DAILY PO Last administered on 01/05/17 10:42; Admin Dose 1 MG; Start 01/01/17 at 09:00 Multivit/Ca Carb/ B Cmplx/FA/Prenat (Sissy-Poonam) 1 tab DAILY PO Last administered on 01/05/17 10:43; Admin Dose 1 TAB; Start 01/01/17 at 09:00 Heparin Sodium (Porcine) (Heparin (5000 Units/0.5 ml)) 5,000 unit BID SC Last administered on 01/05/17 10:48; Admin Dose 5,000 UNIT; Start 01/01/17 at 09:00 Acetaminophen (Tylenol Tab) 650 mg Q6H PRN PO PAIN AND OR ELEVATED TEMP Last administered on 01/02/17 11:57; Admin Dose 650 MG; Start 01/01/17 at 05:00 Pantoprazole (Protonix Tab) 40 mg DAILY@06 PO Last administered on 01/05/17 05: 53; Admin Dose 40 MG; Start 01/01/17 at 06:00 Docusate Sodium (Colace) 100 mg TID PO Last administered on 01/05/17 10:42; Admin Dose 100 MG; Start 01/01/17 at 09:00 Bisacodyl (Dulcolax) 10 mg BID PRN PO CONSTIPATION; Start 01/01/17 at 05:00 Acetaminophen/ Hydrocodone Bitart ([place] (5/325)) 1 tab Q6H PRN PO PAIN; Start 01/01/17 at 05:00 CAROLYN LIMA MD Jan 05, 2017 16:11
--- NOTE | 2017-01-05 19:26 | RADRPT ---
PROCEDURE: Right upper extremity arterial ultrasound. CLINICAL INDICATION: Arteriovenous fistula thrombosis. TECHNIQUE: A right upper extremity duplex arterial ultrasound was performed evaluate an arterioven ous fistula. Duong scale and Doppler imaging was performed. COMPARISON: None available FINDINGS: There is occlusive thrombosis of a right upper extremity AV fistula. The upper extremity arteries we re not imaged. IMPRESSION: 1. 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 RPTAT: ANITHAOM .Bert Blood MD, MD Date Time Electronically viewed and signed by .Bert Blood MD, on 01/05/2017 19:25 .R/
[2017-01-05 19:37] VITALS: BP 87/51; RESP 18
[2017-01-06] VITALS (14 sets, daily range): BP systolic 80–115; BP diastolic 42–62; PULSE 65–85; RESP 18–20
[2017-01-06] MEDS: PANTOPRAZOLE (EC) 40 MG TAB PO SCH (06:00)
[2017-01-06] MEDS: LEVOTHYROXINE 25 MCG TAB PO SCH (06:28)
[2017-01-06] MEDS: DOCUSATE SODIUM 100 MG CAP PO SCH ×3 (09:00→21:00)
[2017-01-06] MEDS: FOLIC ACID 1 MG TAB PO SCH (09:00)
[2017-01-06] MEDS: CLOPIDOGREL 75 MG TAB PO SCH (09:00)
[2017-01-06] MEDS: MULTIVIT/CA CARB/B CMPLX/FA TAB PO SCH (09:00)
[2017-01-06] MEDS: HEPARIN 5,000 UNIT/0.5 ML VIAL SC SCH ×2 (09:00→21:07)
[2017-01-06 09:22] LABS: CALCIUM 7.8 mg/dl (8.4-10.2); CREATININE 7.72 mg/dl (0.44-1.00); POTASSIUM 4.7 mmol/L (3.5-5.1)
[2017-01-06] MEDS ORDERED: LIDOCAINE 1% (MDV) 20 ML INJ ONE (14:06)
--- NOTE | 2017-01-06 14:30 | OPR ---
Date/Time of Note Date/Time of Note DATE: 01/06/17 TIME: 14:28 Operative Report Preoperative Diagnosis End-stage renal disease Postoperative Diagnosis End-stage renal disease Operation Performed Right femoral hemodialysis catheter placement Surgeon: CAROLYN LIMA MD Anesthesia: MAC Estimated Blood Loss: minimal Complications: None Pt Condition Post Procedure: stable Disposition: other Operative\Procedure Findings Patient was prepped and draped in usual sterile fashion 1% lidocaine was used throughout the operation for local anesthesia Access was gained in the right femoral vein Guidewire was advanced through without any difficulties Subcutaneous tissues were dilated using a dilator 20 cm dialysis catheter was advanced over a guidewire Catheter was secured to skin using silk sutures Both ports of the catheter were aspirated and injected using saline solution Patient tolerated the procedure well CAROLYN LIMA MD Jan 06, 2017 14:30
[2017-01-06] MEDS ORDERED: ALBUMIN HUMAN 25% 100 ML IV PRN (15:30)
[2017-01-06] MEDS: ALBUMIN HUMAN 25% 100 ML IV SCH ×2 (15:50→15:54)
--- NOTE | 2017-01-06 18:03 | PN ---
Date/Time of Note Date/Time of Note DATE: 01/06/17 TIME: 18:02 Assessment/Plan VTE Prophylaxis VTE Prophylaxis Intervention: other Lines/Catheters IV [facility]from [facility] Saline Lock Urinary Cath still in place: No Assessment/Plan Chief Complaint/Hosp Course 1. There is an acute fracture to the superior medial articular surface of the left acetabulum. 2. 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 3. S/P FALL 4. There are old healed fracture deformities to the inferior rami of the right and left sides of the pubis. 5. Atherosclerotic vascular disease with vascular stents in the right pelvis. 6. Anasarca. 7. ESRD 8. There is a small laceration or ulceration over the midline of the upper anterior pelvic wall. 9. 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 10 AFIB 11 CLOTTED AVF PLAN HD DECLOTTING AVF AM Problems: Subjective 24 Hr Interval Summary Subjective hx not possible: other (CLOTTED AVF ON HD) Exam/Review of Systems Vital Signs Vitals Vital Signs Date Time Temp Pulse Resp B/P Pulse Ox O2 Delivery O2 Flow Rate FiO2 01/06/17 17:53 69 01/06/17 16:16 2.0 01/06/17 15:40 18 01/06/17 08:00 Nasal Cannula 01/06/17 07:39 97.6 100/50 96 Intake and Output 01/05/17 01/05/17 01/06/17 15:00 23:00 07:00 Intake Total 840 ml Output Total 0 ml Balance 840 ml Exam Neck: supple Respiratory: clear to auscultation Cardiovascular: regular rate and rhythm Gastrointestinal: soft Musculoskeletal: nl extremities to inspection Results Result Diagram: 01/02/17 0442 01/06/17 0755 Results 24 hrs Laboratory Tests Test 01/06/17 07:55 Sodium Level 134 L Potassium Level 4.7 Chloride Level 99 Carbon Dioxide Level 23 Anion Gap 17 H Blood Urea Nitrogen 61 H Creatinine 7.72 H Glucose Level 84 Calcium Level 7.8 L Medications Medications Current Medications Carvedilol (Coreg) 25 mg BID PO Last administered on 01/06/17t 09:20; Admin Dose 25 MG; Start 01/01/17 at 09:00 Clopidogrel Bisulfate (plaVIX) 75 mg DAILY PO Last administered on 01/05/17 10: 42; Admin Dose 75 MG; Start 01/01/17 at 09:00 Folic Acid (Folic Acid) 1 mg DAILY PO Last administered on 01/05/17 10:42; Admin Dose 1 MG; Start 01/01/17 at 09:00 Multivit/Ca Carb/ B Cmplx/FA/Prenat (Sissy-Poonam) 1 tab DAILY PO Last administered on 01/05/17 10:43; Admin Dose 1 TAB; Start 01/01/17 at 09:00 Heparin Sodium (Porcine) (Heparin (5000 Units/0.5 ml)) 5,000 unit BID SC Last administered on 01/05/17 21:22; Admin Dose 5,000 UNIT; Start 01/01/17 at 09:00 Acetaminophen (Tylenol Tab) 650 mg Q6H PRN PO PAIN AND OR ELEVATED TEMP Last administered on 01/02/17 11:57; Admin Dose 650 MG; Start 01/01/17 at 05:00 Pantoprazole (Protonix Tab) 40 mg DAILY@06 PO Last administered on 01/05/17 05: 53; Admin Dose 40 MG; Start 01/01/17 at 06:00 Docusate Sodium (Colace) 100 mg TID PO Last administered on 01/05/17 21:15; Admin Dose 100 MG; Start 01/01/17 at 09:00 Bisacodyl (Dulcolax) 10 mg BID PRN PO CONSTIPATION; Start 01/01/17 at 05:00 Acetaminophen/ Hydrocodone Bitart ([place] (5/325)) 1 tab Q6H PRN PO PAIN; Start 01/01/17 at 05:00 SHEEBA NEGRON MD Jan 06, 2017 18:03
[2017-01-07] VITALS (23 sets, daily range): BP systolic 77–114; BP diastolic 37–56; PULSE 80–108; RESP 12–22
[2017-01-07] MEDS: PANTOPRAZOLE (EC) 40 MG TAB PO SCH (05:30)
[2017-01-07] MEDS: LEVOTHYROXINE 25 MCG TAB PO SCH (05:30)
[2017-01-07 05:50] LABS: ABNORMAL IP MESSAGE 1; BASOPHILS % 0.7 % (0.0-2.0); HEMATOCRIT 26.5 % (37.0-47.0); HEMOGLOBIN 8.4 g/dl (12.0-16.0); LYMPHOCYTES # 0.4 10^3/ul (0.8-2.9); LYMPHOCYTES % 12.4 % (15.0-51.0); MEAN CORPUSCULAR HEMOGLOBIN 32.4 pg (29.0-33.0); MEAN CORPUSCULAR HGB CONC 31.7 g/dl (32.0-37.0); MEAN CORPUSCULAR VOLUME 102.3 fl (82.0-101.0); MEAN PLATELET VOLUME 11.3 fl (7.4-10.4); MONOCYTE # 0.3 10^3/ul (0.3-0.9); MONOCYTES % 8.8 % (0.0-11.0); NEUTROPHIL # 2.4 10^3/ul (1.6-7.5); NEUTROPHILS % 76.8 % (39.0-77.0); PLATELET COUNT 140 10^3/UL (140-415); RED BLOOD COUNT 2.59 10^6/ul (4.20-5.40); RED CELL DISTRIBUTION WIDTH 15.1 % (11.5-14.5); WHITE BLOOD COUNT 3.1 10^3/ul (4.8-10.8)
[2017-01-07] MEDS ORDERED: CEFAZOLIN 1 GM INJ ONE (07:00)
[2017-01-07 08:20] LABS: CALCIUM 8.3 mg/dl (8.4-10.2); CREATININE 5.03 mg/dl (0.44-1.00); POTASSIUM 3.7 mmol/L (3.5-5.1)
[2017-01-07] MEDS: CLOPIDOGREL 75 MG TAB PO SCH ×2 (09:00→17:30)
[2017-01-07] MEDS: FOLIC ACID 1 MG TAB PO SCH (09:00)
[2017-01-07] MEDS: HEPARIN 5,000 UNIT/0.5 ML VIAL SC SCH ×2 (09:00→20:43)
[2017-01-07] MEDS ORDERED: DEXTROSE 5%-0.45% NACL 1,000 ML IV SCH (09:00)
[2017-01-07] MEDS: MULTIVIT/CA CARB/B CMPLX/FA TAB PO SCH (09:00)
[2017-01-07] MEDS: DOCUSATE SODIUM 100 MG CAP PO SCH ×3 (09:00→20:41)
[2017-01-07] MEDS ORDERED: DEXTROSE 5%-0.45% NACL 500 ML BAG IV SCH (10:00)
[2017-01-07] MEDS: DEXTROSE 5%-0.45% NACL 500 ML IV SCH ×2 (10:30→20:45)
[2017-01-07] MEDS ORDERED: PROPOFOL 0 ML ONE (11:39)
[2017-01-07] MEDS ORDERED: FENTAnyl 50 MCG/ML VIAL ONE (11:39)
--- NOTE | 2017-01-07 11:44 | HPN ---
Date/Time of Note Date/Time of Note DATE: 01/07/17 TIME: 11:43 Interval H&P Admission Note Pt. seen H&P reviewed: No system changes CAROLYN LIMA MD Jan 07, 2017 11:43
[2017-01-07] MEDS ORDERED: THROMBIN 5000 UNIT VIAL ONE (12:02)
[2017-01-07] MEDS ORDERED: GELATIN SIZE 100 SPONGE ONE (12:02)
[2017-01-07] MEDS ORDERED: LIDOCAINE 1% (MPF) 30 ML INJ ONE (12:02)
[2017-01-07] MEDS ORDERED: EPHEDrine SULFATE 50 MG/5 ML SYG ONE (12:02)
[2017-01-07] MEDS ORDERED: IOHEXOL 300MG/ML 30 ML BTL ONE (12:03)
[2017-01-07] MEDS ORDERED: HEPARIN 1000 UNITS/ML 10 ML INJ ONE (12:03)
[2017-01-07] MEDS ORDERED: ETOMIDATE 20 MG INJ ONE (12:19)
[2017-01-07] MEDS ORDERED: PHENYLephrine (100 MCG/ML) 5ML SYG ONE (12:33)
[2017-01-07] MEDS ORDERED: EPHEDrine SULFATE 50 MG/5 ML SYG IV PRN (13:00)
[2017-01-07] MEDS ORDERED: HYDROmorphONE (0.2 MG/ML) 10ML SYG IV PRN ×3 (13:00)
[2017-01-07] MEDS ORDERED: ONDANSETRON 4 MG INJ IV PRN (13:00)
[2017-01-07] MEDS ORDERED: METOCLOPRAMIDE 10 MG INJ IV PRN (13:00)
--- NOTE | 2017-01-07 13:46 | OPR ---
Date/Time of Note Date/Time of Note DATE: 01/07/17 TIME: 13:43 Operative Report Preoperative Diagnosis End-stage renal disease Postoperative Diagnosis End-stage renal disease Operation Performed Thrombectomy and revision right upper extremity AV graft Venogram right upper extremity Arteriogram right upper extremity Superior venacavogram Interpretation supervision of the venogram and arteriogram Fluoroscopy Surgeon: CAROLYN LIMA MD Anesthesia: MAC Estimated Blood Loss: 50 - 100 ml's Specimens Clot Complications: None Pt Condition Post Procedure: stable Disposition: PACU, other Operative\Procedure Findings Patient was prepped and draped in usual sterile fashion 1% lidocaine was used throughout the operation for local anesthesia A 2 cm incision was made over the lateral aspect of the AV graft in the right arm Incision was taken down to subcutaneous tissue the graft was identified Vessel loops were passed around the graft A horizontal incision was made over the graft The graft appeared to be lacerated from the previous needle holes Thrombectomy of the artery and the venous limb of the graft was performed using a 4 [place]ican Edward catheter A venogram was done which showed patency of the graft through open stents all the way to the arm and into the internal jugular vein and the tip of the hero catheter being in the right atrium An arteriogram was also done which showed patent arterial anastomosis The graft was then resected and reanastomosed in a revised fashion and end-to- end manner using 6-0 Prolene suture in a continuous suture technique The wound was irrigated and closed in 2 layers of 3-0 Vicryl suture for subcu and 3-0 Vicryl suture for running subcuticular skin closure Patient had a strong thrill and bruit over the newly constructed graft Patient tolerated procedure well CAROLYN LIMA MD Jan 07, 2017 13:46
--- NOTE | 2017-01-07 13:53 | OPR ---
Date/Time of Note Date/Time of Note DATE: 01/07/17 TIME: 13:49 Operative Report Procedure Date: Jan 07, 2017 Preoperative Diagnosis End-stage renal disease Postoperative Diagnosis End-stage renal disease Operation Performed Thrombectomy and revision right upper extremity AV graft Venogram right upper extremity Arteriogram right upper extremity Superior venacavogram Interpretation supervision of the venogram and arteriogram Fluoroscopy Surgeon: CAROLYN LIMA MD Anesthesia: MAC Estimated Blood Loss: 50 - 100 ml's Specimens Clot Tubes/Drains none Complications: None Complications none Pt Condition Post Procedure: stable Disposition: PACU, other Indications Clotted right upper extremity AV graft Operative\Procedure Findings Patient was prepped and draped in usual sterile fashion 1% lidocaine was used throughout the operation for local anesthesia A 2 cm incision was made over the lateral aspect of the AV graft in the right arm Incision was taken down to subcutaneous tissue the graft was identified Vessel loops were passed around the graft A horizontal incision was made over the graft The graft appeared to be lacerated from the previous needle holes Thrombectomy of the artery and the venous limb of the graft was performed using a 4 Burmese Edward catheter A venogram was done which showed patency of the graft through open stents all the way to the arm and into the internal jugular vein and the tip of the hero catheter being in the right atrium An arteriogram was also done which showed patent arterial anastomosis The graft was then resected and reanastomosed in a revised fashion and end-to- end manner using 6-0 Prolene suture in a continuous suture technique The wound was irrigated and closed in 2 layers of 3-0 Vicryl suture for subcu and 3-0 Vicryl suture for running subcuticular skin closure Patient had a strong thrill and bruit over the newly constructed graft Patient tolerated procedure well Procedure Description Patient was prepped and draped in usual sterile fashion 1% lidocaine was used throughout the operation for local anesthesia A 2 cm incision was made over the lateral aspect of the AV graft in the right arm Incision was taken down to subcutaneous tissue the graft was identified Vessel loops were passed around the graft A horizontal incision was made over the graft The graft appeared to be lacerated from the previous needle holes Thrombectomy of the artery and the venous limb of the graft was performed using a 4 Burmese Edward catheter A venogram was done which showed patency of the graft through open stents all the way to the arm and into the internal jugular vein and the tip of the hero catheter being in the right atrium An arteriogram was also done which showed patent arterial anastomosis The graft was then resected and reanastomosed in a revised fashion and end-to- end manner using 6-0 Prolene suture in a continuous suture technique The wound was irrigated and closed in 2 layers of 3-0 Vicryl suture for subcu and 3-0 Vicryl suture for running subcuticular skin closure Patient had a strong thrill and bruit over the newly constructed graft Patient tolerated procedure well CAROLYN LIMA MD Jan 07, 2017 13:53
--- NOTE | 2017-01-07 13:55 | RADRPT ---
PROCEDURE: Intraoperative imaging of the left arm with fluoroscopy. CLINICAL INDICATION: Left arm pain. Dialysis fistula malfunction. Intraoperative. TECHNIQUE: 7 images of the left humerus were obtained in the operating room with an image intensif ier. No radiologist was in attendance. 27.2 seconds of fluoroscopy time was used. COMPARISON: No prior study is available for comparison. FINDINGS: Images demonstrate surgical instruments overlying the left humerus and contrast in the dialysis fist darnell of the left upper extremity. IMPRESSION: 1. Intraoperative imaging of the left humerus. RPTAT: QQ .Librado Ramirez MD, MD Date Time Electronically viewed and signed by .Librado Ramirez MD, MD on 01/07/2017 13:55 .R/
[2017-01-08] VITALS (11 sets, daily range): BP systolic 85–112; BP diastolic 40–52; PULSE 86–98; RESP 18
[2017-01-08] MEDS: PANTOPRAZOLE (EC) 40 MG TAB PO SCH (05:50)
[2017-01-08] MEDS: LEVOTHYROXINE 25 MCG TAB PO SCH (06:32)
[2017-01-08] MEDS: FOLIC ACID 1 MG TAB PO SCH (09:13)
[2017-01-08] MEDS: CLOPIDOGREL 75 MG TAB PO SCH (09:13)
[2017-01-08] MEDS: DOCUSATE SODIUM 100 MG CAP PO SCH ×2 (09:13→14:43)
[2017-01-08] MEDS: MULTIVIT/CA CARB/B CMPLX/FA TAB PO SCH (09:13)
[2017-01-08] MEDS: HEPARIN 5,000 UNIT/0.5 ML VIAL SC SCH (09:18)
[2017-01-08] MEDS ORDERED: ALBUMIN HUMAN 25% 100 ML IV ONE (12:30)
--- NOTE | 2017-01-08 13:41 | PN ---
Date/Time of Note Date/Time of Note DATE: 01/08/17 TIME: 13:40 Assessment/Plan VTE Prophylaxis VTE Prophylaxis Intervention: anti-embolic stocking Lines/Catheters IV [facility]ter [facility]from [facility] Urinary Cath still in place: No Assessment/Plan Chief Complaint/Hosp Course 1. There is an acute fracture to the superior medial articular surface of the left acetabulum. 2. 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 3. S/P FALL 4. There are old healed fracture deformities to the inferior rami of the right and left sides of the pubis. 5. Atherosclerotic vascular disease with vascular stents in the right pelvis. 6. Anasarca. 7. ESRD 8. There is a small laceration or ulceration over the midline of the upper anterior pelvic wall. 9. 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 10 AFIB 11. Clotted AV shunt Problems: Assessment/Plan 1. Continue current regime 2. Discharge SNF Subjective 24 Hr Interval Summary Constitutional: no complaints Exam/Review of Systems Vital Signs Vitals Vital Signs Date Time Temp Pulse Resp B/P Pulse Ox O2 Delivery O2 Flow Rate FiO2 01/08/17 08:39 97.6 95 18 85/50 97 01/08/17 06:07 2.0 01/07/17 17:30 Room Air Intake and Output 01/07/17 01/07/17 01/08/17 15:00 23:00 07:00 Intake Total 100 ml 330 ml 520 ml Output Total 60 ml 0 ml Balance 40 ml 330 ml 520 ml Exam Constitutional: alert, oriented Results Result Diagram: 01/07/17 0430 01/07/17 0430 Medications Medications Current Medications Carvedilol (Coreg) 25 mg BID PO Last administered on 01/07/17 20:42; Admin Dose 25 MG; Start 01/01/17 at 09:00 Clopidogrel Bisulfate (plaVIX) 75 mg DAILY PO Last administered on 01/08/17 09: 13; Admin Dose 75 MG; Start 01/01/17 at 09:00 Folic Acid (Folic Acid) 1 mg DAILY PO Last administered on 01/08/17 09:13; Admin Dose 1 MG; Start 01/01/17 at 09:00 Multivit/Ca Carb/ B Cmplx/FA/Prenat (Sissy-Poonam) 1 tab DAILY PO Last administered on 01/08/17 09:13; Admin Dose 1 TAB; Start 01/01/17 at 09:00 Heparin Sodium (Porcine) (Heparin (5000 Units/0.5 ml)) 5,000 unit BID SC Last administered on 01/08/17 09:18; Admin Dose 5,000 UNIT; Start 01/01/17 at 09:00 Acetaminophen (Tylenol Tab) 650 mg Q6H PRN PO PAIN AND OR ELEVATED TEMP Last administered on 01/02/17 11:57; Admin Dose 650 MG; Start 01/01/17 at 05:00 Pantoprazole (Protonix Tab) 40 mg DAILY@06 PO Last administered on 01/08/17 05: 50; Admin Dose 40 MG; Start 01/01/17 at 06:00 Docusate Sodium (Colace) 100 mg TID PO Last administered on 01/08/17 09:13; Admin Dose 100 MG; Start 01/01/17 at 09:00 Bisacodyl (Dulcolax) 10 mg BID PRN PO CONSTIPATION; Start 01/01/17 at 05:00 Acetaminophen/ Hydrocodone Bitart ([place] (5/325)) 1 tab Q6H PRN PO PAIN; Start 01/01/17 at 05:00 DOLLY YEPEZ Jan 08, 2017 13:41
--- NOTE | 2017-01-10 14:14 | DS ---
Date/Time of Note Date/Time of Note DATE: 01/10/17 TIME: 14:09 Discharge Summary Admission/Discharge Info Admit Date/Time Dec 31, 2016 at 21:57 Discharge Date/Time Jan 08, 2017 at 18:45 Discharge Diagnosis Discharge diagnoses 1. Fall 2. Pelvic fracture 3. Clotted AV graft status post repair Status post catheter placement ESRD Anemia Atherosclerotic heart disease Edema Patient Condition: Good Consults Mrs. Sheets was admitted with with history of fall Patient was seen by and so came Patient noted to have a pelvic fracture Patient developed a clotted AV graft Patient was seen with Dr. Ayaan satnana Patient underwent dialysis catheter placement Patient also underwent declotting of the AV graft Patient's was on pain medication Patient will be discharged to [facility] for physical Procedures Procedure #1 declotting of the AV graft Femoral dialysis catheter placement and removal Hx of Present Illness S/P FALL ESRD Hospital Course 1. There is an acute fracture to the superior medial articular surface of the left acetabulum. 2. 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 3. S/P FALL 4. There are old healed fracture deformities to the inferior rami of the right and left sides of the pubis. 5. Atherosclerotic vascular disease with vascular stents in the right pelvis. 6. Anasarca. 7. ESRD 8. There is a small laceration or ulceration over the midline of the upper anterior pelvic wall. 9. 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 10 AFIB 11 CLOTTED AVF PLAN HD DECLOTTING AVF AM Home Meds Active Scripts Docusate Sodium (Dok) 100 Mg Capsule, 100 MG PO TID for 28 Days, #28 CAP Prov:DOLLY YEPEZ 01/04/17 Bisacodyl* (Bisacodyl*) 5 Mg Tablet., 10 MG PO BID Y for CONSTIPATION for 28 Days, #28 Prov:DOLLY YEPEZ 01/04/17 Acetaminophen (MAPAP) 325 Mg Tablet, 650 MG PO Q6H Y for PAIN AND OR ELEVATED TEMP for 28 Days, TAB Prov:DOLLY YEPEZ 01/04/17 Reported Medications Folic Acid* (Folic Acid*) 1 Mg Tablet, 1 MG PO DAILY, TAB 10/31/16 Multivit/Ca Carb/B Cmplx/Fa* (Sissy-Poonam*) 1 Tab Tab, 1 TAB PO DAILY, TAB 10/31/16 Levothyroxine Sodium* (Levoxyl*) 25 Mcg Tablet, 25 MCG PO BEFORE BREAKFAST, #30 TAB 10/31/16 Carvedilol* (Carvedilol*) 25 Mg Tablet, 25 MG PO BID, #60 TAB 10/31/16 Clopidogrel Bisulfate (Clopidogrel) 75 Mg Tablet, 75 MG PO DAILY, #30 TAB 10/31/16 Follow-up Plan Patient will be going to [facility] for physical therapy Patient is stable at the time of discharge Primary Care Provider Graeme Negron MD Time spent on discharge: < 30 minutes GRAEME NEGRON MD Jan 10, 2017 14:14
== END 2017-01-08 18:45 | DRG 981 ==
LOC: E/R 15:58 → MS1 21:57
PROVIDERS: ADMIT Internal Medicine Nephrology; ATTEND Internal Medicine Nephrology
PROC: 5A1D60Z (ICD-10-PCS; 2017-01-02)
PROC: 03CY0ZZ Extirpation of Matter from Upper Artery, Open Approach (ICD-10-PCS; 2017-01-07)
PROC: 05CY0ZZ Extirpation of Matter from Upper Vein, Open Approach (ICD-10-PCS; 2017-01-07)
PROC: B51MYZZ Fluoroscopy of Right Upper Extremity Veins using Other Contrast (ICD-10-PCS; 2017-01-07)
PROC: B31NYZZ Fluoroscopy of Other Upper Arteries using Other Contrast (ICD-10-PCS; 2017-01-07)
PROC: 05WY07Z Revision of Autologous Tissue Substitute in Upper Vein, Open Approach (ICD-10-PCS; principal; 2017-01-07 11:30)
DX: S32.492A Other specified fracture of left acetabulum, initial encounter for closed fracture (principal); N18.6 End stage renal disease; I12.0 Hypertensive chronic kidney disease with stage 5 chronic kidney disease or end stage renal disease; T82.868A Thrombosis due to vascular prosthetic devices, implants and grafts, initial encounter; I48.91 Unspecified atrial fibrillation; Z99.2 Dependence on renal dialysis; W19.XXXA Unspecified fall, initial encounter; E03.9 Hypothyroidism, unspecified; M81.0 Age-related osteoporosis without current pathological fracture; Z95.0 Presence of cardiac pacemaker; Z90.5 Acquired absence of kidney; S31.010A Laceration without foreign body of lower back and pelvis without penetration into retroperitoneum, initial encounter; M47.896 Other spondylosis, lumbar region; I70.90 Unspecified atherosclerosis; Z95.828 Presence of other vascular implants and grafts; E87.5 Hyperkalemia; M16.12 Unilateral primary osteoarthritis, left hip; Y83.2 Surgical operation with anastomosis, bypass or graft as the cause of abnormal reaction of the patient, or of later complication, without mention of misadventure at the time of the procedure; D64.9 Anemia, unspecified; I25.10 Atherosclerotic heart disease of native coronary artery without angina pectoris
CPT/HCPCS: 36415; 71010; 72170; 72192; 80048; 80053; 83690; 84484; 85025; 85610; 85730; 90935; 93005; 93931; 94640; 94664; 96374; 96375; J0690; J1644; J1885; J2370; J2405; J3010; J7040; J7042; P9047; Q9967

== ENCOUNTER 2017-03-06 19:22 | Emergency (ER) | payer MEDICARE, OTHER ==
[~2017-03-06] VITALS: Ht 149.9 cm; Wt 50.0 kg
[~2017-03-06 19:22] MED LIST changes: +ACET325T40 PO; +BISA5TAB6 PO; -DILT120C79 PO; +DOCU-216 PO
[2017-03-06 19:36] VITALS: Ht 149.9 cm; Wt 50.0 kg
--- NOTE | 2017-03-06 20:41 | RADRPT ---
PROCEDURE: CT Brain without contrast. CLINICAL INDICATION: Head trauma TECHNIQUE: A CT of the brain was performed on a multidetector CT scanner utilizing axial sections from the skull base through the vertex without contrast. Images were reviewed on a high-resolution [employer] workstation. Exam CTDI = 41.44 mGy and the DLP = 720.23 mGy-cm. One or more of the following dose reduction techniques were used: Automated exposure control Adjustment of the mA and/or kV according to patient size. Use of iterative reconstruction technique. COMPARISON: None available FINDINGS: Left frontal temporal scalp swelling is noted with no underlying skull fracture. Mild to moderate di ffuse cerebral and cerebellar atrophy is present. There is proportionate dilatation of the ventricu lar system and sulci in a symmetric fashion. There is prominence of the extraaxial spaces secondary to atrophy. There is no evidence of intracranial hemorrhage, mass effect or midline shift. No abnor mal intra-axial or extra-axial fluid collections are seen. The density of the brain is normal and t he cantor/white matter differentiation is well preserved. Mild patchy diffuse deep white matter micro angiopathic ischemic change is seen. The osseous structures are unremarkable. There is opacifica tion of the right maxillary sinus. Mild mucosal thickening is seen in the right frontal and anterio r ethmoidal air cells. Left maxillary and sphenoid sinuses are clear.. Vascular calcifications are identified. IMPRESSION: 1. No intracranial hemorrhage, mass effect or midline shift. 2. Mild to moderate generalized atrophy. Mild microangiopathic ischemic change. 3. Intracranial atherosclerosis. 4. Left frontal temporal scalp swelling with no underlying skull fracture. RPTAT: HHO .Linda Cummins MD, Date Time Electronically viewed and signed by .Linda Cummins MD, on 03/06/2017 20:41 .O/
--- NOTE | 2017-03-06 21:08 | RADRPT ---
PROCEDURE: XR Chest. CLINICAL INDICATION: Chest pain. TECHNIQUE: Single frontal view of the chest. COMPARISON: 12/21/2016. FINDINGS: Right anterior chest wall dual chamber cardiac pacer with lead tips over expected locations of right atrium right ventricle. Pacer is without significant cell changer interval. There is cardiomegaly. The left pulmonary artery appears enlarged, suggesting degree of pulmonary a rtery hypertension. Atherosclerotic calcifications in the thoracic aorta. New bilateral pleural effusions are seen, left greater than right with bilateral dependent atelectas is, also left greater than right. No signs of pneumothorax are seen. Demineralization limits evaluat ion of fine osseous detail. Degenerative changes again seen in the left shoulder. Otherwise, the o sseous structures and soft tissues are unremarkable. IMPRESSION: 1. Degree of pulmonary artery hypertension. 2. New bilateral pleural effusions and lung base atelectasis, left greater than right. RPTAT: [facility]U Physician Natalio Date Time Electronically viewed and signed by Physician Natalio on 03/06/2017 21:08 RS/
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
[2017-03-06] MEDS ORDERED: ACET500C5 PO (21:26)
[2017-03-06] MEDS ORDERED: CALC1TAB79 PO (21:37)
[2017-03-06] MEDS ORDERED: PANT40TA4 PO (21:38)
[2017-03-06] MEDS ORDERED: HEPA1DIS9 SC (21:42)
[2017-03-06] MEDS ORDERED: HYDR-906 PO (21:43)
[2017-03-06] MEDS ORDERED: ALBU2.5V3 NEB (21:47)
[2017-03-06 21:57] VITALS: BP 117/72; PULSE 98; RESP 18; TEMP 98
== END 2017-03-06 22:47 | disposition home or self-care (01) ==
LOC: E/R 19:22
DX: S00.93XA Contusion of unspecified part of head, initial encounter (principal); S09.90XA Unspecified injury of head, initial encounter; N18.6 End stage renal disease; R51 Headache; V89.2XXA Person injured in unspecified motor-vehicle accident, traffic, initial encounter; Z95.0 Presence of cardiac pacemaker
CPT/HCPCS: 70450; 71010

== ENCOUNTER 2017-09-11 19:14 | Observation (INO) | END 2017-09-14 18:25 ==

== ENCOUNTER 2017-12-07 04:45 | Inpatient (IN) | END 2017-12-18 01:55 | disposition EXP | DRG 252 ==